=== PATIENT | female | born 1930 | race Caucasian/White ===

== ENCOUNTER 2018-01-22 18:43 | Emergency (ER) | payer MEDICARE, BC ==
[2018-01-22 19:02] VITALS: BP 107/65
--- NOTE | 2018-01-22 19:17 | EDM.PDOC ---
ED HPI GENERAL MEDICAL PROBLEM - General Chief Complaint: General Stated Complaint: [id number] REALLY BAD COLD Time Seen by Provider: 01/22/18 19:07 Source of Information: Reports: Patient, Old Records, RN, RN Notes Reviewed History Limitations: Reports: No Limitations - History of Present Illness INITIAL COMMENTS - FREE TEXT/NARRATIVE: Vanessa is an 87 yo F who presents today due to cough and cold sx. She has been sick for the last 2 weeks. She has had a productive cough and slight shortness of breath. She denies chest pain, fever, chills, or body aches. She was seen per her PCP and given a z-samantha which she has since completed. She reports that she is feeling much better over the last couple days. Has been eating and drinking ok. She relates that her niece would not let her go to the [place] unless she was check out so that is why she is her. She has not taken anything additional for her sx. Duration: Week(s): (Over the last 2 weeks. Sx have been gradually improving. ) Location: Reports: Chest Severity: Mild Improves with: Reports: Rest Worsens with: Reports: Movement Associated Symptoms: Reports: cough w sputum, Shortness of Breath - Related Data Allergies Allergy/AdvReac Type Severity Reaction Status Date / Time acetaminophen Allergy Nausea and Verified 01/22/18 19:05 [From Darvocet-N] Vomiting codeine Allergy Cannot Verified 01/22/18 19:05 Remember propoxyphene Allergy Nausea and Verified 01/22/18 19:05 [From Darvocet-N] Vomiting Home Meds: Home Meds Albuterol [IJD: Ventolin HFA] 1 - 2 puff INH ASDIRECTED PRN 07/02/16 [History] Clopidogrel Bisulfate [Clopidogrel] 75 mg PO DAILY 07/02/16 [History] Digoxin [Digox] 125 mcg PO DAILY 07/02/16 [History] Fluocinonide [Lidex 0.05% Crm] 1 applic TOP ASDIRECTED 07/02/16 [History] Fluticasone/Salmeterol [Advair 250-50 Diskus] 1 puff INH BID 07/02/16 [History] Isosorbide Mononitrate [Imdur] 60 mg PO DAILY 07/02/16 [History] Levothyroxine 112 mcg PO DAILY 07/02/16 [History] Lisinopril [Prinivil] 40 mg PO DAILY 07/02/16 [History] Metoprolol Succinate [Toprol XL] 50 mg PO DAILY 07/02/16 [History] Omeprazole 20 mg PO DAILY 07/02/16 [History] Sertraline HCl 100 mg PO DAILY 07/02/16 [History] Warfarin [Coumadin] 5 mg PO DAILY 07/02/16 [History] amLODIPine Besylate [Amlodipine Besylate] 5 mg PO DAILY 07/02/16 [History] atorvaSTATin Calcium [Atorvastatin Calcium] 80 mg PO DAILY 07/02/16 [History] Aspirin [Ecotrin] 81 mg PO DAILY 07/06/16 [History] Nitroglycerin [Nitrostat] 0.4 mg SL ASDIRECTED 01/22/18 [History] Past Medical History HEENT History: Reports: Impaired Vision Cardiovascular History: Reports: Afib, Blood Clots/VTE/DVT, CAD, High Cholesterol, Hypertension, SOB on Exertion, Other (See Below) Other Cardiovascular History: PAROXYSMAL SUPRAVENTRICULAR TACHYCARDIA Respiratory History: Reports: COPD, SOB, Other (See Below) Other Respiratory History: ANGELINA Gastrointestinal History: Reports: GERD Genitourinary History: Reports: None Musculoskeletal History: Reports: Fracture Neurological History: Reports: None Psychiatric History: Reports: Anxiety, Depression Endocrine/Metabolic History: Reports: Diabetes, Type II, Hypothyroidism, Obesity /BMI 30+ Hematologic History: Reports: Anemia Immunologic History: Reports: None Oncologic (Cancer) History: Reports: Breast Dermatologic History: Reports: None - Infectious Disease History Infectious Disease History: Reports: Chicken Pox, Measles, Mumps - Past Surgical History Cardiovascular Surgical History: Reports: Coronary Artery Stent, Other (See Below) GI Surgical History: Reports: Appendectomy, Colostomy, EGD Female Surgical History: Reports: Hysterectomy, Mastectomy Other Female Surgeries/Procedures: Left mastectomy Social & Family History - Tobacco Use Smoking Status *Q: Never Smoker Second Hand Smoke Exposure: No - Caffeine Use Caffeine Use: Reports: Coffee Other Caffeine Use: drinks decaff. - Recreational Drug Use Recreational Drug Use: No ED ROS GENERAL - Review of Systems Review Of Systems: ROS reveals no pertinent complaints other than HPI. ED EXAM, GENERAL - Physical Exam Exam: See Below Exam Limited By: No Limitations General Appearance: Alert, WD/WN, No Apparent Distress Eye Exam: Bilateral Eye: PERRL Ears: Normal External Exam, Normal Canal, Hearing Grossly Normal, Normal TMs Ear Exam: Bilateral Ear: Auricle Normal, Canal Normal, TM normal Nose: Normal Inspection, Normal Mucosa, No Blood Throat/Mouth: Normal Inspection, Normal Lips, Normal Teeth, Normal Gums, Normal Oropharynx, Normal Voice, No Airway Compromise Head: Atraumatic, Normocephalic Neck: Normal Inspection, Supple, Non-Tender, Full Range of Motion Respiratory/Chest: No Respiratory Distress, Lungs Clear, Normal Breath Sounds, No Accessory Muscle Use, Chest Non-Tender Cardiovascular: Normal Peripheral Pulses, Regular Rate, Rhythm, No Edema, No Gallop, No JVD, No Murmur, No Rub GI/Abdominal: Normal Bowel Sounds, Soft, Non-Tender, No Organomegaly, No Distention, No Abnormal Bruit, No Mass (Female) Exam: Deferred Rectal (Female) Exam: Deferred Back Exam: Normal Inspection, Full Range of Motion, NT Extremities: Normal Inspection, Normal Range of Motion, Non-Tender, Normal Capillary Refill, No Pedal Edema Neurological: Alert, Oriented, CN II-XII Intact, Normal Cognition, Normal Gait, Normal Reflexes, No Motor/Sensory Deficits Psychiatric: Normal Affect, Normal Mood Skin Exam: Warm, Dry, Intact, Normal Color, No Rash Lymphatic: No Adenopathy Course - Vital Signs Last Recorded V/S: Last Vital Signs Temp 98.2 F 01/22/18 18:52 Pulse 79 01/22/18 18:52 Resp 19 01/22/18 18:52 BP 107/65 01/22/18 18:52 Pulse Ox 98 01/22/18 18:52 - Orders/Labs/Meds Labs: Laboratory Tests 01/22/18 01/22/18 Range/Units 19:20 19:20 WBC 9.0 (5.0-10.0) 10^3/uL RBC 4.23 (4.2-5.4) 10^6/uL Hgb 12.0 (12.0-16.0) g/dL Hct 36.9 L (37.0-47.0) % MCV 87.2 D (80-100) fL MCH 28.4 (27.0-34.0) pg MCHC 32.5 L (33.0-35.0) g/dL Plt Count 266 D (150-450) 10^3/uL Neut % (Auto) 69.4 (42.2-75.2) % Lymph % (Auto) 22.6 (20.5-50.1) % [place] % (Auto) 6.6 (2-8) % Eos % (Auto) 1.0 (1.0-3.0) % Baso % (Auto) 0.4 (0.0-1.0) % Sodium 137 (135-145) mmol/L Potassium 4.1 (3.6-5.0) mmol/L Chloride 108 (101-111) mmol/L Carbon Dioxide 19.0 L (21.0-31.0) mmol/L Anion Gap 14.1 BUN 27 H (7-18) mg/dL Creatinine 1.5 H (0.6-1.3) mg/dL Est Cr Clr Drug Dosing 20.42 mL/min Estimated GFR (MDRD) 33 BUN/Creatinine Ratio 18.00 Glucose 121 H (74-105) mg/dL Calcium 8.6 (8.4-10.2) mg/dl Total Bilirubin 0.8 (0.2-1.0) mg/dL AST 19 (10-42) IU/L ALT 15 (10-60) IU/L Alkaline Phosphatase 76 (42-121) IU/L Total Protein 7.2 (6.7-8.2) g/dl Albumin 3.4 (3.2-5.5) g/dl Globulin 3.8 Albumin/Globulin Ratio 0.89 Departure - Departure Time of Disposition: 19:57 Disposition: Home, Self-Care 01 Condition: Good Clinical Impression: Upper respiratory infection Qualifiers: URI type: unspecified URI Qualified Code(s): J06.9 - Acute upper respiratory infection, unspecified - Discharge Information Instructions: Upper Respiratory Infection, Adult, [id number] Forms: ED Department Discharge Care Plan Goals: Push fluids Your cough may last a couple weeks. Over the counter cough drops as needed. Monitor for fever, increased shortness of breath, or other concerns.
[2018-01-22 19:47] LABS: ANION GAP 14.1
== END 2018-01-22 20:02 | disposition home or self-care (01) ==
LOC: DL.ED 18:43
DX: J06.9 Acute upper respiratory infection, unspecified (principal); I10 Essential (primary) hypertension; E78.00 Pure hypercholesterolemia, unspecified; I48.91 Unspecified atrial fibrillation; K21.9 Gastro-esophageal reflux disease without esophagitis; F41.9 Anxiety disorder, unspecified; F32.9 Major depressive disorder, single episode, unspecified; E11.9 Type 2 diabetes mellitus without complications; E03.9 Hypothyroidism, unspecified; E66.9 Obesity, unspecified; Z88.8 Allergy status to other drugs, medicaments and biological substances; Z88.5 Allergy status to narcotic agent; Z79.899 Other long term (current) drug therapy; Z79.82 Long term (current) use of aspirin; Z79.01 Long term (current) use of anticoagulants
CPT/HCPCS: 36415; 71046; 80053; 85025; 99283

== ENCOUNTER 2019-09-27 18:25 | Observation (INO) | payer MEDICARE, BC ==
[2019-09-27] MEDS ORDERED: Sodium Chloride 0.9% 10 ML Syringe FLUSH PRN (18:41)
[2019-09-27] MEDS ORDERED: Ondansetron 4 MG/2 ML SDV IV ONE (18:43)
--- NOTE | 2019-09-27 18:46 | EDM.PDOC ---
Scribed by Albina Macdonald 09/27/19 1846 for Vijay Tom MD <Vijay Tom - Last Filed: 09/27/19 18:44> ED HPI GENERAL MEDICAL PROBLEM - General Chief Complaint: Gastrointestinal Problem Stated Complaint: AMBULANCE LRA Time Seen by Provider: 09/27/19 18:27 Source of Information: Reports: Patient, EMS, EMS Notes Reviewed, RN, RN Notes Reviewed History Limitations: Reports: No Limitations - History of Present Illness INITIAL COMMENTS - FREE TEXT/NARRATIVE: Patient presents to ER by [facility]. Patient was fine during the day but this evening she developed nausea, vomiting and diarrhea. Denies abdominal pain, chest pain, fever or chills. Onset: Today Duration: Getting Worse Location: Reports: Abdomen Quality: Reports: Ache Severity: Moderate Improves with: Reports: None Worsens with: Reports: None Associated Symptoms: Reports: No Other Symptoms - Related Data Allergies Allergy/AdvReac Type Severity Reaction Status Date / Time acetaminophen Allergy Nausea and Verified 09/27/19 18:48 [From Darvocet-N] Vomiting codeine Allergy Cannot Verified 09/27/19 18:48 Remember propoxyphene Allergy Nausea and Verified 09/27/19 18:48 [From Darvocet-N] Vomiting Home Meds: Home Meds Albuterol [IJD: Ventolin HFA] 1 - 2 puff INH ASDIRECTED PRN 07/02/16 [History] Clopidogrel Bisulfate [Clopidogrel] 75 mg PO DAILY 07/02/16 [History] Digoxin [Digox] 125 mcg PO DAILY 07/02/16 [History] Fluticasone/Salmeterol [Advair 250-50 Diskus] 1 puff INH BID 07/02/16 [History] Isosorbide Mononitrate [Imdur] 60 mg PO DAILY 07/02/16 [History] Levothyroxine 112 mcg PO DAILY 07/02/16 [History] Lisinopril [Prinivil] 20 mg PO DAILY 07/02/16 [History] Metoprolol Succinate [Toprol XL] 50 mg PO DAILY 07/02/16 [History] Omeprazole 20 mg PO BID 07/02/16 [History] Sertraline HCl 100 mg PO DAILY 07/02/16 [History] Warfarin [Coumadin] 5 mg PO ASDIRECTED 07/02/16 [History] atorvaSTATin Calcium [Atorvastatin Calcium] 80 mg PO DAILY 07/02/16 [History] Nitroglycerin [Nitrostat] 0.4 mg SL ASDIRECTED PRN 01/22/18 [History] Folic Acid 1 mg PO DAILY 08/18/18 [History] Furosemide 20 mg PO DAILY PRN 05/04/19 [History] LORazepam 0.5 - 1 mg PO BEDTIME PRN 05/04/19 [History] Methylcellulose [Citrucel] 500 mg PO DAILY PRN 05/04/19 [History] Past Medical History HEENT History: Reports: Impaired Vision Cardiovascular History: Reports: Afib, Blood Clots/VTE/DVT, CAD, High Cholesterol, Hypertension, SOB on Exertion, Other (See Below) Other Cardiovascular History: PAROXYSMAL SUPRAVENTRICULAR TACHYCARDIA Respiratory History: Reports: COPD, SOB, Other (See Below) Other Respiratory History: ANGELINA Gastrointestinal History: Reports: GERD Genitourinary History: Reports: None Musculoskeletal History: Reports: Fracture Neurological History: Reports: None Psychiatric History: Reports: Anxiety, Depression Endocrine/Metabolic History: Reports: Diabetes, Type II, Hypothyroidism, Obesity /BMI 30+ Hematologic History: Reports: Anemia Immunologic History: Reports: None Oncologic (Cancer) History: Reports: Breast Dermatologic History: Reports: None - Infectious Disease History Infectious Disease History: Reports: Chicken Pox, Measles, Mumps - Past Surgical History Cardiovascular Surgical History: Reports: Coronary Artery Stent, Other (See Below) GI Surgical History: Reports: Appendectomy, Colostomy, EGD Female Surgical History: Reports: Hysterectomy, Mastectomy Other Female Surgeries/Procedures: Left mastectomy Social & Family History - Caffeine Use Caffeine Use: Reports: Coffee Other Caffeine Use: drinks decaff. ED ROS GENERAL - Review of Systems Review Of Systems: Comprehensive ROS is negative, except as noted in HPI. Course - Vital Signs Last Recorded V/S: Last Vital Signs Temp 98 F 09/27/19 23:40 Pulse 60 09/27/19 23:40 Resp 20 09/27/19 23:40 BP 124/55 L 09/27/19 23:40 Pulse Ox 98 09/27/19 23:40 - Orders/Labs/Meds Orders: Active Orders 24 hr Category Date Time Status Peripheral IV Care [RC] . DIRECTED Care 09/27/19 18:42 Active C DIFFICILE TOXIN IMMUNOASSAY [MREF] Routine Lab 09/27/19 18:44 Received CULTURE STOOL [RM] Stat Lab 09/27/19 18:44 Received UA RFX ESTELA AND CULT IF INDIC [URIN] Stat Lab 09/27/19 18:41 Ordered Sodium Chloride 0.9% [Saline Flush] Med 09/27/19 18:41 Active 10 ml FLUSH ASDIRECTED PRN Peripheral IV Insertion Adult [OM.PC] Stat Oth 09/27/19 18:40 Ordered Medication Orders Acetaminophen (Tylenol) 650 mg PO Q4H PRN PRN Reason: Pain (Mild 1-3)/fever Albuterol/Ipratropium (Duoneb 3.0-0.5 Mg/3 Ml) 3 ml NEB Q2H PRN PRN Reason: sob Clopidogrel Bisulfate (Plavix) 75 mg PO DAILY [facility] Dextrose/Water (Dextrose 50% In Water) 25 ml IVPUSH Q1H PRN PRN Reason: blood sugar <70 Digoxin (Lanoxin) 125 mcg PO DAILY [facility] Folic Acid (Folic Acid) 1 mg PO DAILY [facility] Lactated Ringer's (Ringers, Lactated) 1,000 mls @ 75 mls/hr IV ASDIRECTED [facility] Last Admin: 09/27/19 22:32 Dose: 75 mls/hr Insulin Human Lispro (Humalog) 0 unit SUBCUT ACBED [facility]; Protocol Isosorbide Mononitrate (Imdur) 60 mg PO DAILY [facility] Levothyroxine Sodium (Levothyroxine) 112 mcg PO DAILY [facility] Lorazepam (Ativan) 0.5 mg PO BEDTIME PRN PRN Reason: Sleep Metoprolol Succinate (Toprol Xl) 50 mg PO DAILY [facility] Non-Formulary Medication (Atorvastatin Calcium [Atorvastatin Calcium]) 80 mg PO DAILY [facility] Non-Formulary Medication (Lisinopril [Prinivil]) 20 mg PO DAILY [facility] Non-Formulary Medication (Sertraline Hcl [Sertraline Hcl]) 100 mg PO DAILY [facility] Non-Formulary Medication (Fluticasone/Salmeterol [Advair 250-50 Diskus]) 1 puff INH BID [facility] Omeprazole (Omeprazole) 20 mg PO BID [facility] Ondansetron HCl (Zofran Odt) 4 mg PO Q6H PRN PRN Reason: nausea, able to take PO Ondansetron HCl (Zofran) 4 mg IVPUSH Q4H PRN PRN Reason: Nausea/Vomiting Sodium Chloride (Saline Flush) 10 ml FLUSH ASDIRECTED PRN PRN Reason: Keep Vein Open Last Admin: 09/27/19 19:26 Dose: 10 ml Warfarin Sodium (Pharmacy To Dose - Warfarin) 1 dose .XX ASDIRECTED [facility] Labs: Laboratory Tests 09/27/19 09/27/19 09/27/19 Range/Units 18:55 18:55 18:55 WBC 11.2 H (5.0-10.0) 10^3/uL RBC 3.50 L (4.2-5.4) 10^6/uL Hgb 10.2 L D (12.0-16.0) g/dL Hct 32.0 L (37.0-47.0) % MCV 91.4 D (80-100) fL MCH 29.1 (27.0-34.0) pg MCHC 31.9 L (33.0-35.0) g/dL Plt Count 157 D (150-450) 10^3/uL Neut % (Auto) 78.7 H (42.2-75.2) % Lymph % (Auto) 15.2 L (20.5-50.1) % [place] % (Auto) 5.2 (2-8) % Eos % (Auto) 0.8 L (1.0-3.0) % Baso % (Auto) 0.1 (0.0-1.0) % PT 35.1 H (9.0-12.0) SEC INR 3.7 H (0.9-1.2) Sodium 142 (135-145) mmol/L Potassium 2.9 L (3.6-5.0) mmol/L Chloride 122 H D (101-111) mmol/L Carbon Dioxide 15.0 L (21.0-31.0) mmol/L Anion Gap 7.9 BUN 30 H (7-18) mg/dL Creatinine 0.9 (0.6-1.3) mg/dL Est Cr Clr Drug Dosing 33.52 mL/min Estimated GFR (MDRD) 59 BUN/Creatinine Ratio 33.33 Glucose 109 H (74-105) mg/dL Lactic Acid (0.5-2.2) mmol/L Calcium 5.9 L D (8.4-10.2) mg/dl Total Bilirubin 0.5 (0.2-1.0) mg/dL AST 13 (10-42) IU/L ALT 13 (10-60) IU/L Alkaline Phosphatase 58 (42-121) IU/L Troponin I (0.00-0.02) ng/ml B-Natriuretic Peptide 39 (0-100) pg/ml Total Protein 5.4 L (6.7-8.2) g/dl Albumin 2.7 L (3.2-5.5) g/dl Globulin 2.7 Albumin/Globulin Ratio 1.00 Amylase 44 (28-100) U/L Lipase 46 (22-51) U/L Digoxin (0-2.5) ng/ml 09/27/19 09/27/19 09/27/19 Range/Units 18:55 18:55 18:55 WBC (5.0-10.0) 10^3/uL RBC (4.2-5.4) 10^6/uL Hgb (12.0-16.0) g/dL Hct (37.0-47.0) % MCV (80-100) fL MCH (27.0-34.0) pg MCHC (33.0-35.0) g/dL Plt Count (150-450) 10^3/uL Neut % (Auto) (42.2-75.2) % Lymph % (Auto) (20.5-50.1) % [place] % (Auto) (2-8) % Eos % (Auto) (1.0-3.0) % Baso % (Auto) (0.0-1.0) % PT (9.0-12.0) SEC INR (0.9-1.2) Sodium (135-145) mmol/L Potassium (3.6-5.0) mmol/L Chloride (101-111) mmol/L Carbon Dioxide (21.0-31.0) mmol/L Anion Gap BUN (7-18) mg/dL Creatinine (0.6-1.3) mg/dL Est Cr Clr Drug Dosing mL/min Estimated GFR (MDRD) BUN/Creatinine Ratio Glucose (74-105) mg/dL Lactic Acid 0.7 (0.5-2.2) mmol/L Calcium (8.4-10.2) mg/dl Total Bilirubin (0.2-1.0) mg/dL AST (10-42) IU/L ALT (10-60) IU/L Alkaline Phosphatase (42-121) IU/L Troponin I < 0.02 (0.00-0.02) ng/ml B-Natriuretic Peptide (0-100) pg/ml Total Protein (6.7-8.2) g/dl Albumin (3.2-5.5) g/dl Globulin Albumin/Globulin Ratio Amylase (28-100) U/L Lipase (22-51) U/L Digoxin 0.5 (0-2.5) ng/ml Meds: Medications Generic Name Dose Route Start Last Admin Trade Name Freq PRN Reason Stop Dose Admin Acetaminophen 650 mg 09/27/19 21:08 Tylenol PO Q4H PRN Pain (Mild 1-3)/fever Albuterol/Ipratropium 3 ml 09/27/19 21:15 Duoneb 3.0-0.5 Mg/3 Ml NEB Q2H PRN sob Clopidogrel Bisulfate 75 mg 09/28/19 09:00 Plavix PO DAILY [facility] Dextrose/Water 25 ml 09/27/19 21:11 Dextrose 50% In Water IVPUSH Q1H PRN blood sugar <70 Digoxin 125 mcg 09/28/19 09:00 Lanoxin PO DAILY [facility] Folic Acid 1 mg 09/28/19 09:00 Folic Acid PO DAILY [facility] Lactated Ringer's 1,000 mls @ 75 mls/hr 09/27/19 21:15 09/27/19 22:32 Ringers, Lactated IV 75 mls/hr ASDIRECTED [facility] Administration Insulin Human Lispro 0 unit 09/28/19 07:00 Humalog SUBCUT ACBED [facility] Protocol Isosorbide Mononitrate 60 mg 09/28/19 09:00 Imdur PO DAILY [facility] Levothyroxine Sodium 112 mcg 09/28/19 09:00 Levothyroxine PO DAILY [facility] Lorazepam 0.5 mg 09/27/19 21:11 Ativan PO BEDTIME PRN Sleep Metoprolol Succinate 50 mg 09/28/19 09:00 Toprol Xl PO DAILY [facility] Non-Formulary Medication 80 mg 09/28/19 09:00 Atorvastatin Calcium [Atorvastatin Calcium] PO DAILY [facility] Non-Formulary Medication 20 mg 09/28/19 09:00 Lisinopril [Prinivil] PO DAILY [facility] Non-Formulary Medication 100 mg 09/28/19 09:00 Sertraline Hcl [Sertraline Hcl] PO DAILY [facility] Non-Formulary Medication 1 puff 09/28/19 09:00 Fluticasone/Salmeterol [Advair 250-50 Diskus] INH BID [facility] Omeprazole 20 mg 09/28/19 09:00 Omeprazole PO BID [facility] Ondansetron HCl 4 mg 09/27/19 21:08 Zofran Odt PO Q6H PRN nausea, able to take PO Ondansetron HCl 4 mg 09/27/19 21:08 Zofran IVPUSH Q4H PRN Nausea/Vomiting Sodium Chloride 10 ml 09/27/19 18:41 09/27/19 19:26 Saline Flush FLUSH 10 ml ASDIRECTED PRN Administration Keep Vein Open Warfarin Sodium 1 dose 09/27/19 21:15 Pharmacy To Dose - Warfarin .XX ASDIRECTED [facility] Discontinued Medications Generic Name Dose Route Start Last Admin Trade Name Freq PRN Reason Stop Dose Admin Potassium Chloride 10 meq/ 100 mls @ 100 mls/hr 09/27/19 19:25 09/27/19 19:35 Premix IV 09/27/19 20:24 50 mls/hr ONETIME ONE Administration Ondansetron HCl 4 mg 09/27/19 18:43 09/27/19 18:57 Zofran IV 09/27/19 18:44 4 mg ONETIME ONE Administration Temazepam 15 mg 09/27/19 21:08 Restoril PO BEDTIME PRN Sleep - Re-Assessments/Exams Free Text/Narrative Re-Assessment/Exam: 09/27/19 19:00 Care transferred to Yesica MOULTON at shift change. Departure - Departure Disposition: Refer to Observation Clinical Impression: Diarrhea, Vomiting, Hypokalemia, Metabolic acidosis, History of atrial fibrillation, Chronic anticoagulation, History of diverticulosis - Discharge Information <Yesica Santiago - Last Filed: 09/28/19 01:16> ED ROS GENERAL - Review of Systems Constitutional: Reports: Fever, Chills, Diaphoresis (Sudden onset this evening) HEENT: Reports: No Symptoms Respiratory: Reports: Shortness of Breath (chronic no change) Cardiovascular: Reports: No Symptoms Endocrine: Reports: No Symptoms GI/Abdominal: Reports: Diarrhea, Stool Incontinence, Vomiting : Reports: No Symptoms Musculoskeletal: Reports: No Symptoms Skin: Reports: Other (skin tear left uper arm) Neurological: Reports: No Symptoms ED EXAM, GI/ABD - Physical Exam Exam: See Below Exam Limited By: No Limitations General Appearance: Alert, No Apparent Distress, Obese Eyes: Bilateral: EOMI Ears: Normal External Exam, Hearing Grossly Normal Nose: Normal Inspection Throat/Mouth: Normal Inspection Head: Atraumatic, Normocephalic Neck: Normal Inspection Respiratory/Chest: No Respiratory Distress, Lungs Clear, Decreased Breath Sounds (bilateral bases) Cardiovascular: Normal Peripheral Pulses, Irregularly Irregular GI/Abdominal Exam: Normal Bowel Sounds, Soft, Non-Tender Back Exam: Normal Inspection Neurological: Alert, Oriented, Normal Cognition Psychiatric: Normal Affect, Normal Mood Skin Exam: Warm, Dry, Wound/Incision (left upper outer arm) Course - Re-Assessments/Exams Free Text/Narrative Re-Assessment/Exam: Dr Garduno accepting patient for observation admission, metabolic acidosis, diarrhea. Departure - Departure Time of Disposition: 19:46 Condition: Fair - Discharge Information *PRESCRIPTION DRUG MONITORING PROGRAM REVIEWED*: No *COPY OF PRESCRIPTION DRUG MONITORING REPORT IN PATIENT AMNA: No I have read and agree with the documentation that has been completed regarding this visit. By signing this record, I attest that the documentation was completed in my physical presence and is an accurate record of the encounter.
[2019-09-27 19:23] LABS: ANION GAP 7.9
[2019-09-27] MEDS ORDERED: Potassium Chloride 10 MEQ in Premix Bag 1 BAG IV ONE (19:25)
[2019-09-27] MEDS ORDERED: Ondansetron 4 MG/2 ML SDV IVPUSH PRN (21:08)
[2019-09-27] MEDS ORDERED: Acetaminophen 325 MG Tab PO PRN (21:08)
[2019-09-27] MEDS ORDERED: Ondansetron 4 MG Tab.DIS PO PRN (21:08)
[2019-09-27] MEDS ORDERED: Temazepam 15 MG Cap PO PRN (21:08)
[2019-09-27] MEDS ORDERED: LORAZEPAM 0.5 MG PO PRN (21:11)
[2019-09-27] MEDS ORDERED: 50% Dextrose in Water 50 ML Syringe IVPUSH PRN (21:11)
[2019-09-27] MEDS ORDERED: Albuterol/Ipratropium 3.0-0.5 MG/3 ML Neb Soln NEB PRN (21:15)
[2019-09-27] MEDS ORDERED: Lactated Ringers 1,000 ML IV SCH (21:15)
--- NOTE | 2019-09-27 21:25 | PCM.HP ---
H&P History of Present Illness - General Date of Service: 09/27/19 Admit Problem/Dx: Admission Diagnosis/Problem Admission Diagnosis/Problem Metabolic acidosis Source of Information: Patient, Family, Provider (ER) - History of Present Illness Initial Comments - Free Text/Narative: 89-year-old who has been living independently. Has a history of atrial fibrillation, diet-controlled diabetes, COPD. She has chronic diarrhea with 2-5 bowel movement every day. The bowel movements are relatively large she says. She somewhat poor historian. It appears that she has had no recent problems in the past few days. She developed hot flush, nausea, an episode of vomiting and sudden diarrhea while playing card game. She felt to be but had no syncopal episode. She was brought into the emergency room. She denies chest pain, no abdominal pain, no fever or chills. No cough. She is actually feeling better now. Laboratory studies were abnormal in the emergency room and was referred for hospital admission. - Related Data Allergies/Adverse Reactions: Allergies Allergy/AdvReac Type Severity Reaction Status Date / Time acetaminophen Allergy Nausea and Verified 09/27/19 18:48 [From Darvocet-N] Vomiting codeine Allergy Cannot Verified 09/27/19 18:48 Remember propoxyphene Allergy Nausea and Verified 09/27/19 18:48 [From Darvocet-N] Vomiting Home Medications: Home Meds Albuterol [IJD: Ventolin HFA] 1 - 2 puff INH ASDIRECTED PRN 07/02/16 [History] Clopidogrel Bisulfate [Clopidogrel] 75 mg PO DAILY 07/02/16 [History] Digoxin [Digox] 125 mcg PO DAILY 07/02/16 [History] Fluticasone/Salmeterol [Advair 250-50 Diskus] 1 puff INH BID 07/02/16 [History] Isosorbide Mononitrate [Imdur] 60 mg PO DAILY 07/02/16 [History] Levothyroxine 112 mcg PO DAILY 07/02/16 [History] Lisinopril [Prinivil] 20 mg PO DAILY 07/02/16 [History] Metoprolol Succinate [Toprol XL] 50 mg PO DAILY 07/02/16 [History] Omeprazole 20 mg PO BID 07/02/16 [History] Sertraline HCl 100 mg PO DAILY 07/02/16 [History] Warfarin [Coumadin] 5 mg PO ASDIRECTED 07/02/16 [History] atorvaSTATin Calcium [Atorvastatin Calcium] 80 mg PO DAILY 07/02/16 [History] Nitroglycerin [Nitrostat] 0.4 mg SL ASDIRECTED PRN 01/22/18 [History] Folic Acid 1 mg PO DAILY 08/18/18 [History] Furosemide 20 mg PO DAILY PRN 05/04/19 [History] LORazepam 0.5 - 1 mg PO BEDTIME PRN 05/04/19 [History] Methylcellulose [Citrucel] 500 mg PO DAILY PRN 05/04/19 [History] Past Medical History HEENT History: Reports: Impaired Vision Cardiovascular History: Reports: Afib, Blood Clots/VTE/DVT, CAD, High Cholesterol, Hypertension, SOB on Exertion, Other (See Below) Other Cardiovascular History: PAROXYSMAL SUPRAVENTRICULAR TACHYCARDIA Respiratory History: Reports: COPD, SOB, Other (See Below) Other Respiratory History: ANGELINA Gastrointestinal History: Reports: GERD Genitourinary History: Reports: None Musculoskeletal History: Reports: Fracture Neurological History: Reports: None Psychiatric History: Reports: Anxiety, Depression Endocrine/Metabolic History: Reports: Diabetes, Type II, Hypothyroidism, Obesity /BMI 30+ Hematologic History: Reports: Anemia Immunologic History: Reports: None Oncologic (Cancer) History: Reports: Breast Dermatologic History: Reports: None - Infectious Disease History Infectious Disease History: Reports: Chicken Pox, Measles, Mumps - Past Surgical History Cardiovascular Surgical History: Reports: Coronary Artery Stent, Other (See Below) GI Surgical History: Reports: Appendectomy, Colostomy, EGD Female Surgical History: Reports: Hysterectomy, Mastectomy Other Female Surgeries/Procedures: Left mastectomy Social & Family History - Tobacco Use Smoking Status *Q: Never Smoker - Caffeine Use Caffeine Use: Reports: Coffee Other Caffeine Use: drinks decaff. - Recreational Drug Use Recreational Drug Use: No H&P Review of Systems - Review of Systems: Review Of Systems: See Below General: Reports: Malaise, Weakness. Denies: Fever, Chills Pulmonary: Denies: Shortness of Breath, Wheezing Cardiovascular: Denies: Chest Pain (Sudden onset), Palpitations, Edema Gastrointestinal: Reports: Diarrhea, Nausea, Vomiting (No black or bloody material). Denies: Abdominal Pain Genitourinary: Denies: Dysuria Musculoskeletal: Denies: Neck Pain Neurological: Reports: Dizziness. Denies: Confusion, Headache, Seizure, Syncope Exam - Exam Exam: See Below - Vital Signs Vital Signs: Last Vital Signs Temp 35.8 C 09/27/19 18:43 Pulse 84 09/27/19 18:43 Resp 14 09/27/19 18:43 BP 133/58 L 09/27/19 18:43 Pulse Ox 94 L 09/27/19 18:43 Weight: 67.585 kg - Exam Quality Assessment: No: Supplemental Oxygen General: Alert, Oriented Neck: Supple Lungs: Clear to Auscultation, Normal Respiratory Effort Cardiovascular: Irregular Rhythm GI/Abdominal Exam: Normal Bowel Sounds, Soft, Non-Tender Extremities: No Pedal Edema - Patient Data Lab Results Last 24 hrs: Laboratory Results - last 24 hr 09/27/19 09/27/19 09/27/19 Range/Units 18:55 18:55 18:55 WBC 11.2 H (5.0-10.0) 10^3/uL RBC 3.50 L (4.2-5.4) 10^6/uL Hgb 10.2 L D (12.0-16.0) g/dL Hct 32.0 L (37.0-47.0) % MCV 91.4 D (80-100) fL MCH 29.1 (27.0-34.0) pg MCHC 31.9 L (33.0-35.0) g/dL Plt Count 157 D (150-450) 10^3/uL Neut % (Auto) 78.7 H (42.2-75.2) % Lymph % (Auto) 15.2 L (20.5-50.1) % Republic % (Auto) 5.2 (2-8) % Eos % (Auto) 0.8 L (1.0-3.0) % Baso % (Auto) 0.1 (0.0-1.0) % PT 35.1 H (9.0-12.0) SEC INR 3.7 H (0.9-1.2) Sodium 142 (135-145) mmol/L Potassium 2.9 L (3.6-5.0) mmol/L Chloride 122 H D (101-111) mmol/L Carbon Dioxide 15.0 L (21.0-31.0) mmol/L Anion Gap 7.9 BUN 30 H (7-18) mg/dL Creatinine 0.9 (0.6-1.3) mg/dL Est Cr Clr Drug Dosing 33.52 mL/min Estimated GFR (MDRD) 59 BUN/Creatinine Ratio 33.33 Glucose 109 H (74-105) mg/dL Lactic Acid (0.5-2.2) mmol/L Calcium 5.9 L D (8.4-10.2) mg/dl Total Bilirubin 0.5 (0.2-1.0) mg/dL AST 13 (10-42) IU/L ALT 13 (10-60) IU/L Alkaline Phosphatase 58 (42-121) IU/L Troponin I (0.00-0.02) ng/ml B-Natriuretic Peptide 39 (0-100) pg/ml Total Protein 5.4 L (6.7-8.2) g/dl Albumin 2.7 L (3.2-5.5) g/dl Globulin 2.7 Albumin/Globulin Ratio 1.00 Amylase 44 (28-100) U/L Lipase 46 (22-51) U/L Digoxin (0-2.5) ng/ml 09/27/19 09/27/19 09/27/19 Range/Units 18:55 18:55 18:55 WBC (5.0-10.0) 10^3/uL RBC (4.2-5.4) 10^6/uL Hgb (12.0-16.0) g/dL Hct (37.0-47.0) % MCV (80-100) fL MCH (27.0-34.0) pg MCHC (33.0-35.0) g/dL Plt Count (150-450) 10^3/uL Neut % (Auto) (42.2-75.2) % Lymph % (Auto) (20.5-50.1) % Republic % (Auto) (2-8) % Eos % (Auto) (1.0-3.0) % Baso % (Auto) (0.0-1.0) % PT (9.0-12.0) SEC INR (0.9-1.2) Sodium (135-145) mmol/L Potassium (3.6-5.0) mmol/L Chloride (101-111) mmol/L Carbon Dioxide (21.0-31.0) mmol/L Anion Gap BUN (7-18) mg/dL Creatinine (0.6-1.3) mg/dL Est Cr Clr Drug Dosing mL/min Estimated GFR (MDRD) BUN/Creatinine Ratio Glucose (74-105) mg/dL Lactic Acid 0.7 (0.5-2.2) mmol/L Calcium (8.4-10.2) mg/dl Total Bilirubin (0.2-1.0) mg/dL AST (10-42) IU/L ALT (10-60) IU/L Alkaline Phosphatase (42-121) IU/L Troponin I < 0.02 (0.00-0.02) ng/ml B-Natriuretic Peptide (0-100) pg/ml Total Protein (6.7-8.2) g/dl Albumin (3.2-5.5) g/dl Globulin Albumin/Globulin Ratio Amylase (28-100) U/L Lipase (22-51) U/L Digoxin 0.5 (0-2.5) ng/ml Result Diagrams: 09/27/19 18:55 09/27/19 18:55 Yifan Results Last 24 hrs: Microbiology 09/27/19 18:44 Stool Occult Blood (YIFAN) - Final Stool / Feces - Stool, Liquid NEGATIVE OCCULT BLOOD REFERENCE RANGE: NEGATIVE - Problem List (1) Near syncope SNOMED Code(s): 264628129 ICD Code: R55 - SYNCOPE AND COLLAPSE Status: Acute Current Visit: Yes (2) Diarrhea SNOMED Code(s): 80401701 ICD Code: R19.7 - DIARRHEA, UNSPECIFIED Status: Acute Current Visit: No (3) Vomiting SNOMED Code(s): 416616452 ICD Code: R11.10 - VOMITING, UNSPECIFIED Status: Acute Current Visit: No Problem List Initiated/Reviewed/Updated: Yes Orders Last 24hrs: Active Orders 24 hr Category Date Time Status Admission Diagnosis [ADT] Routine ADT 09/27/19 19:43 Ordered Admission Status [Patient Status] [ADT] Routine ADT 09/27/19 19:43 Active Antiembolic Devices [RC] PER UNIT ROUTINE Care 09/27/19 21:09 Ordered Blood Glucose Check, Bedside [RC] WITHMEALSANDBED Care 09/27/19 21:08 Ordered EKG 12 Lead [EKG Documentation Completion] [RC] URGENT Care 09/27/19 18:54 Active Oxygen Therapy [RC] PRN Care 09/27/19 21:08 Ordered Peripheral IV Care [RC] . DIRECTED Care 09/27/19 18:42 Active RT Aerosol Therapy [RC] ASDIRECTED Care 09/27/19 21:15 Ordered Up With Assistance [RC] ASDIRECTED Care 09/27/19 21:08 Ordered VTE/DVT Education [RC] PER UNIT ROUTINE Care 09/27/19 21:08 Ordered Vital Signs [RC] Q4H Care 09/27/19 21:08 Ordered Regular Diet [DIET] Diet 09/27/19 Breakfast Ordered BASIC METABOLIC PANEL,BMP [CHEM] AM Lab 09/28/19 05:15 Ordered BASIC METABOLIC PANEL,BMP [CHEM] Urgent Lab 09/27/19 20:51 Ordered C DIFFICILE TOXIN IMMUNOASSAY [MREF] Routine Lab 09/27/19 18:44 Received CBC WITH AUTO DIFF [HEME] AM Lab 09/28/19 05:15 Ordered CULTURE STOOL [RM] Stat Lab 09/27/19 18:44 Received INR,PT,PROTHROMBIN TIME [COAG] DAILY Lab 09/28/19 05:15 Ordered INR,PT,PROTHROMBIN TIME [COAG] DAILY Lab 09/29/19 05:15 Ordered INR,PT,PROTHROMBIN TIME [COAG] DAILY Lab 09/30/19 05:15 Ordered INR,PT,PROTHROMBIN TIME [COAG] DAILY Lab 10/01/19 05:15 Ordered INR,PT,PROTHROMBIN TIME [COAG] DAILY Lab 10/02/19 05:15 Ordered MAGNESIUM [CHEM] AM Lab 09/28/19 05:11 Ordered PHOSPHORUS [CHEM] AM Lab 09/28/19 05:11 Ordered UA RFX YIFAN AND CULT IF INDIC [URIN] Stat Lab 09/27/19 18:41 Ordered Acetaminophen [Tylenol] Med 09/27/19 21:08 Ordered 650 mg PO Q4H PRN Albuterol/Ipratropium [DuoNeb 3.0-0.5 MG/3 ML] Med 09/27/19 21:15 Ordered 3 ml NEB Q2H PRN Clopidogrel [Plavix] Med 09/28/19 09:00 Ordered 75 mg PO DAILY Dextrose 50% in Water Med 09/27/19 21:11 Ordered 25 ml IVPUSH Q1H PRN Digoxin [Lanoxin] Med 09/28/19 09:00 Ordered 125 mcg PO DAILY Fluticasone/Salmeterol [Advair 250-50 Diskus] Med 09/28/19 09:00 Ordered 1 puff INH BID Folic Acid Med 09/28/19 09:00 Ordered 1 mg PO DAILY Insulin Lispro [HumaLOG] Med 09/28/19 07:00 Ordered See Protocol SUBCUT ACBED Isosorbide Mononitrate [Imdur] Med 09/28/19 09:00 Ordered 60 mg PO DAILY LORazepam [Ativan] Med 09/27/19 21:11 Ordered 0.5 mg PO BEDTIME PRN Lactated Ringers @ 75 MLS/HR(1000ml) Med 09/27/19 21:15 Ordered Lactated Ringers [Ringers, Lactated] 1,000 ml IV ASDIRECTED Levothyroxine Med 09/28/19 09:00 Ordered 112 mcg PO DAILY Lisinopril [Prinivil] Med 09/28/19 09:00 Ordered 20 mg PO DAILY Metoprolol Succinate [Toprol XL] Med 09/28/19 09:00 Ordered 50 mg PO DAILY Omeprazole Med 09/28/19 09:00 Ordered 20 mg PO BID Ondansetron [Zofran ODT] Med 09/27/19 21:08 Ordered 4 mg PO Q6H PRN Ondansetron [Zofran] Med 09/27/19 21:08 Ordered 4 mg IVPUSH Q4H PRN Pharmacy to Dose - Warfarin Med 09/27/19 21:15 Ordered 1 dose .XX ASDIRECTED Sertraline HCl [Sertraline HCl] Med 09/28/19 09:00 Ordered 100 mg PO DAILY Sodium Chloride 0.9% [Saline Flush] Med 09/27/19 18:41 Active 10 ml FLUSH ASDIRECTED PRN atorvaSTATin Calcium [Atorvastatin Calcium] Med 09/28/19 09:00 Ordered 80 mg PO DAILY Antiembolic Hose [OM.PC] Per Unit Routine Oth 09/27/19 21:09 Ordered Peripheral IV Insertion Adult [OM.PC] Stat Oth 09/27/19 18:40 Ordered Resuscitation Status Routine Resus Stat 09/27/19 21:08 Ordered Medication Orders Acetaminophen (Tylenol) 650 mg PO Q4H PRN PRN Reason: Pain (Mild 1-3)/fever Albuterol/Ipratropium (Duoneb 3.0-0.5 Mg/3 Ml) 3 ml NEB Q2H PRN PRN Reason: sob Clopidogrel Bisulfate (Plavix) 75 mg PO DAILY [facility] Dextrose/Water (Dextrose 50% In Water) 25 ml IVPUSH Q1H PRN PRN Reason: blood sugar <70 Digoxin (Lanoxin) 125 mcg PO DAILY [facility] Folic Acid (Folic Acid) 1 mg PO DAILY [facility] Lactated Ringer's (Ringers, Lactated) 1,000 mls @ 75 mls/hr IV ASDIRECTED [facility] Insulin Human Lispro (Humalog) 0 unit SUBCUT ACBED DEBI; Protocol Isosorbide Mononitrate (Imdur) 60 mg PO DAILY [facility] Levothyroxine Sodium (Levothyroxine) 112 mcg PO DAILY [facility] Lorazepam (Ativan) 0.5 mg PO BEDTIME PRN PRN Reason: Sleep Metoprolol Succinate (Toprol Xl) 50 mg PO DAILY [facility] Non-Formulary Medication (Atorvastatin Calcium [Atorvastatin Calcium]) 80 mg PO DAILY [facility] Non-Formulary Medication (Lisinopril [Prinivil]) 20 mg PO DAILY [facility] Non-Formulary Medication (Sertraline Hcl [Sertraline Hcl]) 100 mg PO DAILY [facility] Non-Formulary Medication (Fluticasone/Salmeterol [Advair 250-50 Diskus]) 1 puff INH BID [facility] Omeprazole (Omeprazole) 20 mg PO BID [facility] Ondansetron HCl (Zofran Odt) 4 mg PO Q6H PRN PRN Reason: nausea, able to take PO Ondansetron HCl (Zofran) 4 mg IVPUSH Q4H PRN PRN Reason: Nausea/Vomiting Sodium Chloride (Saline Flush) 10 ml FLUSH ASDIRECTED PRN PRN Reason: Keep Vein Open Last Admin: 09/27/19 19:26 Dose: 10 ml Warfarin Sodium (Pharmacy To Dose - Warfarin) 1 dose .XX ASDIRECTED [facility] Assessment/Plan Comment:: The patient is an 89-year-old with a history of COPD, atrial fibrillation, chronic kidney disease stage III, anticoagulation for atrial fibrillation, dyslipidemia, coronary artery disease, hypothyroidism. Presented and near syncopal episode. Had nausea, an episode of vomiting and loose bowel movement. We'll monitor the patient on telemetry correct electrolytes if abnormal Electrolyte abnormalities When comparing laboratory studies from recent results from [facility] they are quite different. On the laboratory studies from the ER creatinine is 0.9 The patient has a baseline creatinine of 1.5 1.7. Concern that our laboratory measurements were not correct. Will recheck electrolyte panel now Replace electrolytes as needed following that. For atrial fibrillation continue metoprolol for rate control Continue anticoagulation with Coumadin for target INR of 2-3 For now we will have to hold Coumadin since the INR is supratherapeutic Likely have to cut back Coumadin dose on discharge Type 2 diabetes Diet-controlled Will follow blood sugars and supplemental insulin as needed COPD Continue Advair No apparent acute exacerbation DVT prophylaxis with full dose and to correlation with Coumadin
[2019-09-27 22:52] LABS: ANION GAP 11.4
[2019-09-28] MEDS ORDERED: NO WARFARIN DOSE NEEDED PO ONE (03:00)
[2019-09-28] MEDS ORDERED: LEVOTHYROXINE 112 MCG PO SCH (06:00)
[2019-09-28] MEDS ORDERED: OMEPRAZOLE 20 MG PO SCH (06:00)
[2019-09-28 06:54] LABS: ANION GAP 10.8
[2019-09-28] MEDS: Insulin Lispro 100 Units/ML 3 ML Vial SUBCUT SCH ×2 (08:20→11:32)
[2019-09-28 08:21] VITALS: BP 166/82; PULSE 74
[2019-09-28] MEDS ORDERED: METOPROLOL SUCCINATE 50 MG PO SCH (09:00)
[2019-09-28] MEDS ORDERED: CLOPIDOGREL 75 MG PO SCH (09:00)
[2019-09-28] MEDS ORDERED: LISINOPRIL 20 MG PO SCH ×2 (09:00→09:19)
[2019-09-28] MEDS ORDERED: SERTRALINE HCL 100 MG PO SCH (09:00)
[2019-09-28] MEDS ORDERED: DIGOXIN 125 MCG PO SCH (09:00)
[2019-09-28] MEDS ORDERED: FOLIC ACID 1 MG PO SCH (09:00)
[2019-09-28] MEDS ORDERED: Non-Formulary Medication 1 Each (Fluticasone/Salmeterol [Advair 250-50 Diskus] 1 PUFF) INH SCH (09:00)
[2019-09-28] MEDS ORDERED: ISOSORBIDE MONONITRATE 60 MG PO SCH (09:00)
--- NOTE | 2019-09-28 10:58 | PCM.DCSUM1 ---
Discharge Summary - Hospital Course Free Text/Narrative:: on admission: 89-year-old who has been living independently. has a history of COPD, atrial fibrillation, chronic kidney disease stage III, anticoagulation for atrial fibrillation, dyslipidemia, coronary artery disease, hypothyroidism. She has chronic diarrhea with 2-5 bowel movement every day. The bowel movements are relatively large she says. She somewhat poor historian. It appears that she has had no recent problems in the past few days. She developed hot flush, nausea, an episode of vomiting and sudden diarrhea while playing card game. She felt to be but had no syncopal episode. She was brought into the emergency room. She denies chest pain, no abdominal pain, no fever or chills. No cough. She is actually feeling better now. Laboratory studies were abnormal with severe hypokalemia, metabolic acidosis in the emergency room and was referred for hospital admission. hospital course: Presented and near syncopal episode. Had nausea, an episode of vomiting and loose bowel movement. resolved symptoms has been doing well Electrolyte abnormalities When comparing laboratory studies from ER with recent results from [facility] they were quite different. On the laboratory studies from the ER creatinine is 0.9 The patient has a baseline creatinine of 1.5 1.7. rechecked elytes and the new set of results were within reasonable range For atrial fibrillation continue metoprolol for rate control Continue anticoagulation with Coumadin for target INR of 2-3 For now we will have to hold Coumadin since the INR is supratherapeutic will cut back Coumadin dose on discharge Type 2 diabetes Diet-controlled COPD Continue Advair No apparent acute exacerbation Diagnosis: Stroke: No - Discharge Data Discharge Date: 09/28/19 Discharge Disposition: Home, Self-Care 01 Condition: Stable - Referral to Home Health Primary Care Physician: Ji Garduno MD - Discharge Diagnosis/Problem(s) (1) Near syncope SNOMED Code(s): 536378467 ICD Code: R55 - SYNCOPE AND COLLAPSE Status: Acute Current Visit: Yes (2) Diarrhea SNOMED Code(s): 68686991 ICD Code: R19.7 - DIARRHEA, UNSPECIFIED Status: Acute Current Visit: No (3) Vomiting SNOMED Code(s): 755120286 ICD Code: R11.10 - VOMITING, UNSPECIFIED Status: Acute Current Visit: No - Patient Instructions Diet: Heart Healthy Diet Activity: As Tolerated - Discharge Plan *PRESCRIPTION DRUG MONITORING PROGRAM REVIEWED*: No *COPY OF PRESCRIPTION DRUG MONITORING REPORT IN PATIENT AMNA: No Home Medications: Home Meds Albuterol [IJD: Ventolin HFA] 1 - 2 puff INH ASDIRECTED PRN 07/02/16 [History] Clopidogrel Bisulfate [Clopidogrel] 75 mg PO DAILY 07/02/16 [History] Digoxin [Digox] 125 mcg PO DAILY 07/02/16 [History] Fluticasone/Salmeterol [Advair 250-50 Diskus] 1 puff INH BID 07/02/16 [History] Isosorbide Mononitrate [Imdur] 60 mg PO DAILY 07/02/16 [History] Levothyroxine 112 mcg PO DAILY 07/02/16 [History] Lisinopril [Prinivil] 20 mg PO DAILY 07/02/16 [History] Metoprolol Succinate [Toprol XL] 50 mg PO DAILY 07/02/16 [History] Omeprazole 20 mg PO BID 07/02/16 [History] Sertraline HCl 100 mg PO DAILY 07/02/16 [History] atorvaSTATin Calcium [Atorvastatin Calcium] 80 mg PO DAILY 07/02/16 [History] Nitroglycerin [Nitrostat] 0.4 mg SL ASDIRECTED PRN 01/22/18 [History] Folic Acid 1 mg PO DAILY 08/18/18 [History] LORazepam 0.5 - 1 mg PO BEDTIME PRN 05/04/19 [History] Methylcellulose [Citrucel] 500 mg PO DAILY PRN 05/04/19 [History] Warfarin [Coumadin] 2.5 mg PO ASDIRECTED #0 09/28/19 [Rx] Oxygen Therapy Mode: Room Air Patient Handouts: Near-Syncope, [id number] Referrals: Destiny Alexander NP [Nurse Practitioner] - 09/30/19 12:20 pm - Discharge Summary/Plan Comment DC Time >30 min.: No - General Info Date of Service: 09/28/19 Admission Dx/Problem (Free Text: Admission Diagnosis/Problem Admission Diagnosis/Problem near syncope Functional Status: Reports: Tolerating Diet, Ambulating - Review of Systems General: Denies: Fever, Weakness Pulmonary: Denies: Shortness of Breath Cardiovascular: Denies: Chest Pain Gastrointestinal: Denies: Abdominal Pain Genitourinary: Denies: Dysuria Neurological: Denies: Confusion - Patient Data Vitals - Most Recent: Last Vital Signs Temp 36.7 C 09/28/19 08:21 Pulse 74 09/28/19 08:22 Resp 20 09/28/19 08:21 BP 166/82 H 09/28/19 08:22 Pulse Ox 97 09/28/19 08:21 Weight - Most Recent: 66.95 kg I&O - Last 24 hours: Intake & Output 09/27/19 09/28/19 09/28/19 22:59 06:59 14:59 Intake Total 100 735 360 Output Total 600 Balance 100 135 360 Lab Results - Last 24 hrs: Laboratory Results - last 24 hr 09/27/19 09/27/19 09/27/19 Range/Units 18:55 18:55 18:55 WBC 11.2 H (5.0-10.0) 10^3/uL RBC 3.50 L (4.2-5.4) 10^6/uL Hgb 10.2 L D (12.0-16.0) g/dL Hct 32.0 L (37.0-47.0) % MCV 91.4 D (80-100) fL MCH 29.1 (27.0-34.0) pg MCHC 31.9 L (33.0-35.0) g/dL Plt Count 157 D (150-450) 10^3/uL Neut % (Auto) 78.7 H (42.2-75.2) % Lymph % (Auto) 15.2 L (20.5-50.1) % [place] % (Auto) 5.2 (2-8) % Eos % (Auto) 0.8 L (1.0-3.0) % Baso % (Auto) 0.1 (0.0-1.0) % PT 35.1 H (9.0-12.0) SEC INR 3.7 H (0.9-1.2) Sodium 142 (135-145) mmol/L Potassium 2.9 L (3.6-5.0) mmol/L Chloride 122 H D (101-111) mmol/L Carbon Dioxide 15.0 L (21.0-31.0) mmol/L Anion Gap 7.9 BUN 30 H (7-18) mg/dL Creatinine 0.9 (0.6-1.3) mg/dL Est Cr Clr Drug Dosing 33.52 mL/min Estimated GFR (MDRD) 59 BUN/Creatinine Ratio 33.33 Glucose 109 H (74-105) mg/dL POC Glucose (83-110) mg/dl Lactic Acid (0.5-2.2) mmol/L Calcium 5.9 L D (8.4-10.2) mg/dl Phosphorus (2.5-4.6) mg/dL Magnesium (1.8-2.5) mg/dL Total Bilirubin 0.5 (0.2-1.0) mg/dL AST 13 (10-42) IU/L ALT 13 (10-60) IU/L Alkaline Phosphatase 58 (42-121) IU/L Troponin I (0.00-0.02) ng/ml B-Natriuretic Peptide 39 (0-100) pg/ml Total Protein 5.4 L (6.7-8.2) g/dl Albumin 2.7 L (3.2-5.5) g/dl Globulin 2.7 Albumin/Globulin Ratio 1.00 Amylase 44 (28-100) U/L Lipase 46 (22-51) U/L Urine Color (YELLOW) Urine Appearance (CLEAR) Urine pH (5.0-9.0) Ur Specific Barry (1.005-1.030) Urine Protein (NEGATIVE) Urine Glucose (UA) (NEGATIVE) Urine Ketones (NEGATIVE) Urine Occult Blood (NEGATIVE) Urine Nitrite (NEGATIVE) Urine Bilirubin (NEGATIVE) Urine Urobilinogen (0.2-1.0) mg/dL Ur Leukocyte Esterase (NEGATIVE) Urine RBC /HPF Urine WBC (0-5/HPF) /HPF Ur Epithelial Cells (NOT SEEN) /HPF Urine Bacteria (0-FEW/HPF) /HPF Hyaline Casts (NOT SEEN) /LPF Digoxin (0-2.5) ng/ml 09/27/19 09/27/19 09/27/19 Range/Units 18:55 18:55 18:55 WBC (5.0-10.0) 10^3/uL RBC (4.2-5.4) 10^6/uL Hgb (12.0-16.0) g/dL Hct (37.0-47.0) % MCV (80-100) fL MCH (27.0-34.0) pg MCHC (33.0-35.0) g/dL Plt Count (150-450) 10^3/uL Neut % (Auto) (42.2-75.2) % Lymph % (Auto) (20.5-50.1) % [place] % (Auto) (2-8) % Eos % (Auto) (1.0-3.0) % Baso % (Auto) (0.0-1.0) % PT (9.0-12.0) SEC INR (0.9-1.2) Sodium (135-145) mmol/L Potassium (3.6-5.0) mmol/L Chloride (101-111) mmol/L Carbon Dioxide (21.0-31.0) mmol/L Anion Gap BUN (7-18) mg/dL Creatinine (0.6-1.3) mg/dL Est Cr Clr Drug Dosing mL/min Estimated GFR (MDRD) BUN/Creatinine Ratio Glucose (74-105) mg/dL POC Glucose (83-110) mg/dl Lactic Acid 0.7 (0.5-2.2) mmol/L Calcium (8.4-10.2) mg/dl Phosphorus (2.5-4.6) mg/dL Magnesium (1.8-2.5) mg/dL Total Bilirubin (0.2-1.0) mg/dL AST (10-42) IU/L ALT (10-60) IU/L Alkaline Phosphatase (42-121) IU/L Troponin I < 0.02 (0.00-0.02) ng/ml B-Natriuretic Peptide (0-100) pg/ml Total Protein (6.7-8.2) g/dl Albumin (3.2-5.5) g/dl Globulin Albumin/Globulin Ratio Amylase (28-100) U/L Lipase (22-51) U/L Urine Color (YELLOW) Urine Appearance (CLEAR) Urine pH (5.0-9.0) Ur Specific Barry (1.005-1.030) Urine Protein (NEGATIVE) Urine Glucose (UA) (NEGATIVE) Urine Ketones (NEGATIVE) Urine Occult Blood (NEGATIVE) Urine Nitrite (NEGATIVE) Urine Bilirubin (NEGATIVE) Urine Urobilinogen (0.2-1.0) mg/dL Ur Leukocyte Esterase (NEGATIVE) Urine RBC /HPF Urine WBC (0-5/HPF) /HPF Ur Epithelial Cells (NOT SEEN) /HPF Urine Bacteria (0-FEW/HPF) /HPF Hyaline Casts (NOT SEEN) /LPF Digoxin 0.5 (0-2.5) ng/ml 09/27/19 09/27/19 09/28/19 Range/Units 21:25 22:23 02:30 WBC (5.0-10.0) 10^3/uL RBC (4.2-5.4) 10^6/uL Hgb (12.0-16.0) g/dL Hct (37.0-47.0) % MCV (80-100) fL MCH (27.0-34.0) pg MCHC (33.0-35.0) g/dL Plt Count (150-450) 10^3/uL Neut % (Auto) (42.2-75.2) % Lymph % (Auto) (20.5-50.1) % [place] % (Auto) (2-8) % Eos % (Auto) (1.0-3.0) % Baso % (Auto) (0.0-1.0) % PT (9.0-12.0) SEC INR (0.9-1.2) Sodium 138 (135-145) mmol/L Potassium 4.4 D (3.6-5.0) mmol/L Chloride 111 (101-111) mmol/L Carbon Dioxide 20.0 L (21.0-31.0) mmol/L Anion Gap 11.4 BUN 40 H (7-18) mg/dL Creatinine 1.3 (0.6-1.3) mg/dL Est Cr Clr Drug Dosing 23.20 mL/min Estimated GFR (MDRD) 39 BUN/Creatinine Ratio Glucose 167 H (74-105) mg/dL POC Glucose 130 H (83-110) mg/dl Lactic Acid (0.5-2.2) mmol/L Calcium 8.4 D (8.4-10.2) mg/dl Phosphorus (2.5-4.6) mg/dL Magnesium (1.8-2.5) mg/dL Total Bilirubin (0.2-1.0) mg/dL AST (10-42) IU/L ALT (10-60) IU/L Alkaline Phosphatase (42-121) IU/L Troponin I (0.00-0.02) ng/ml B-Natriuretic Peptide (0-100) pg/ml Total Protein (6.7-8.2) g/dl Albumin (3.2-5.5) g/dl Globulin Albumin/Globulin Ratio Amylase (28-100) U/L Lipase (22-51) U/L Urine Color Yellow (YELLOW) Urine Appearance Clear (CLEAR) Urine pH 5.5 (5.0-9.0) Ur Specific Barry 1.020 (1.005-1.030) Urine Protein Trace H (NEGATIVE) Urine Glucose (UA) Negative (NEGATIVE) Urine Ketones Negative (NEGATIVE) Urine Occult Blood Negative (NEGATIVE) Urine Nitrite Negative (NEGATIVE) Urine Bilirubin Negative (NEGATIVE) Urine Urobilinogen 0.2 (0.2-1.0) mg/dL Ur Leukocyte Esterase Small H (NEGATIVE) Urine RBC 0-5 /HPF Urine WBC 5-10 H (0-5/HPF) /HPF Ur Epithelial Cells Few (NOT SEEN) /HPF Urine Bacteria Few (0-FEW/HPF) /HPF Hyaline Casts Occasional H (NOT SEEN) /LPF Digoxin (0-2.5) ng/ml 09/28/19 09/28/19 09/28/19 Range/Units 05:40 05:40 05:40 WBC 7.1 (5.0-10.0) 10^3/uL RBC 4.04 L (4.2-5.4) 10^6/uL Hgb 11.8 L D (12.0-16.0) g/dL Hct 36.9 L (37.0-47.0) % MCV 91.3 (80-100) fL MCH 29.2 (27.0-34.0) pg MCHC 32.0 L (33.0-35.0) g/dL Plt Count 155 (150-450) 10^3/uL Neut % (Auto) 62.2 (42.2-75.2) % Lymph % (Auto) 30.4 (20.5-50.1) % [place] % (Auto) 6.1 (2-8) % Eos % (Auto) 1.0 (1.0-3.0) % Baso % (Auto) 0.3 (0.0-1.0) % PT 30.0 H (9.0-12.0) SEC INR 3.1 H (0.9-1.2) Sodium 140 (135-145) mmol/L Potassium 4.8 (3.6-5.0) mmol/L Chloride 113 H (101-111) mmol/L Carbon Dioxide 21.0 (21.0-31.0) mmol/L Anion Gap 10.8 BUN 36 H (7-18) mg/dL Creatinine 1.3 (0.6-1.3) mg/dL Est Cr Clr Drug Dosing 23.20 mL/min Estimated GFR (MDRD) 39 BUN/Creatinine Ratio Glucose 101 (74-105) mg/dL POC Glucose (83-110) mg/dl Lactic Acid (0.5-2.2) mmol/L Calcium 8.3 L (8.4-10.2) mg/dl Phosphorus 2.3 L (2.5-4.6) mg/dL Magnesium 1.6 L (1.8-2.5) mg/dL Total Bilirubin (0.2-1.0) mg/dL AST (10-42) IU/L ALT (10-60) IU/L Alkaline Phosphatase (42-121) IU/L Troponin I (0.00-0.02) ng/ml B-Natriuretic Peptide (0-100) pg/ml Total Protein (6.7-8.2) g/dl Albumin (3.2-5.5) g/dl Globulin Albumin/Globulin Ratio Amylase (28-100) U/L Lipase (22-51) U/L Urine Color (YELLOW) Urine Appearance (CLEAR) Urine pH (5.0-9.0) Ur Specific Barry (1.005-1.030) Urine Protein (NEGATIVE) Urine Glucose (UA) (NEGATIVE) Urine Ketones (NEGATIVE) Urine Occult Blood (NEGATIVE) Urine Nitrite (NEGATIVE) Urine Bilirubin (NEGATIVE) Urine Urobilinogen (0.2-1.0) mg/dL Ur Leukocyte Esterase (NEGATIVE) Urine RBC /HPF Urine WBC (0-5/HPF) /HPF Ur Epithelial Cells (NOT SEEN) /HPF Urine Bacteria (0-FEW/HPF) /HPF Hyaline Casts (NOT SEEN) /LPF Digoxin (0-2.5) ng/ml 09/28/19 Range/Units 07:58 WBC (5.0-10.0) 10^3/uL RBC (4.2-5.4) 10^6/uL Hgb (12.0-16.0) g/dL Hct (37.0-47.0) % MCV (80-100) fL MCH (27.0-34.0) pg MCHC (33.0-35.0) g/dL Plt Count (150-450) 10^3/uL Neut % (Auto) (42.2-75.2) % Lymph % (Auto) (20.5-50.1) % [place] % (Auto) (2-8) % Eos % (Auto) (1.0-3.0) % Baso % (Auto) (0.0-1.0) % PT (9.0-12.0) SEC INR (0.9-1.2) Sodium (135-145) mmol/L Potassium (3.6-5.0) mmol/L Chloride (101-111) mmol/L Carbon Dioxide (21.0-31.0) mmol/L Anion Gap BUN (7-18) mg/dL Creatinine (0.6-1.3) mg/dL Est Cr Clr Drug Dosing mL/min Estimated GFR (MDRD) BUN/Creatinine Ratio Glucose (74-105) mg/dL POC Glucose 88 (83-110) mg/dl Lactic Acid (0.5-2.2) mmol/L Calcium (8.4-10.2) mg/dl Phosphorus (2.5-4.6) mg/dL Magnesium (1.8-2.5) mg/dL Total Bilirubin (0.2-1.0) mg/dL AST (10-42) IU/L ALT (10-60) IU/L Alkaline Phosphatase (42-121) IU/L Troponin I (0.00-0.02) ng/ml B-Natriuretic Peptide (0-100) pg/ml Total Protein (6.7-8.2) g/dl Albumin (3.2-5.5) g/dl Globulin Albumin/Globulin Ratio Amylase (28-100) U/L Lipase (22-51) U/L Urine Color (YELLOW) Urine Appearance (CLEAR) Urine pH (5.0-9.0) Ur Specific Barry (1.005-1.030) Urine Protein (NEGATIVE) Urine Glucose (UA) (NEGATIVE) Urine Ketones (NEGATIVE) Urine Occult Blood (NEGATIVE) Urine Nitrite (NEGATIVE) Urine Bilirubin (NEGATIVE) Urine Urobilinogen (0.2-1.0) mg/dL Ur Leukocyte Esterase (NEGATIVE) Urine RBC /HPF Urine WBC (0-5/HPF) /HPF Ur Epithelial Cells (NOT SEEN) /HPF Urine Bacteria (0-FEW/HPF) /HPF Hyaline Casts (NOT SEEN) /LPF Digoxin (0-2.5) ng/ml ESTELA Results - Last 24 hrs: Microbiology 09/27/19 18:44 Stool Occult Blood (ESTELA) - Final Stool / Feces - Stool, Liquid NEGATIVE OCCULT BLOOD REFERENCE RANGE: NEGATIVE Med Orders - Current: Current Medications Acetaminophen (Tylenol) 650 mg PO Q4H PRN PRN Reason: Pain (Mild 1-3)/fever Albuterol/Ipratropium (Duoneb 3.0-0.5 Mg/3 Ml) 3 ml NEB Q2H PRN PRN Reason: sob Clopidogrel Bisulfate (Plavix) 75 mg PO DAILY [facility] Dextrose/Water (Dextrose 50% In Water) 25 ml IVPUSH Q1H PRN PRN Reason: blood sugar <70 Digoxin (Lanoxin) 125 mcg PO DAILY [facility] Folic Acid (Folic Acid) 1 mg PO DAILY [facility] Last Admin: 09/28/19 08:23 Dose: 1 mg Lactated Ringer's (Ringers, Lactated) 1,000 mls @ 75 mls/hr IV ASDIRECTED [facility] Last Admin: 09/27/19 22:32 Dose: 75 mls/hr Insulin Human Lispro (Humalog) 0 unit SUBCUT ACBED [facility]; Protocol Last Admin: 09/28/19 08:20 Dose: Not Given Isosorbide Mononitrate (Imdur) 60 mg PO DAILY [facility] Levothyroxine Sodium (Levothyroxine) 112 mcg PO ACBREAKFAST [facility] Lisinopril (Prinivil) 20 mg PO DAILY [facility] Lorazepam (Ativan) 0.5 mg PO BEDTIME PRN PRN Reason: Sleep Metoprolol Succinate (Toprol Xl) 50 mg PO DAILY [facility] Atorvastatin Calcium [Atorvastatin Calcium] 80 MgPtom 80 mg PO BEDTIME [facility] Sertraline Hcl [ Sertraline Hcl] 100 MgPtom 100 mg PO DAILY [facility] Last Admin: 09/28/19 08:21 Dose: 100 mg Non-Formulary Medication (Fluticasone/Salmeterol [Advair 250-50 Diskus]) 1 puff INH BID [facility] Omeprazole (Omeprazole) 20 mg PO BIDAC [facility] Ondansetron HCl (Zofran Odt) 4 mg PO Q6H PRN PRN Reason: nausea, able to take PO Ondansetron HCl (Zofran) 4 mg IVPUSH Q4H PRN PRN Reason: Nausea/Vomiting Sodium Chloride (Saline Flush) 10 ml FLUSH ASDIRECTED PRN PRN Reason: Keep Vein Open Last Admin: 09/27/19 19:26 Dose: 10 ml Warfarin Sodium (Pharmacy To Dose - Warfarin) 1 dose .XX ASDIRECTED [facility] Warfarin Sodium (Coumadin) 1 mg PO ONETIME ONE Stop: 09/28/19 14:01 Discontinued Medications Clopidogrel Bisulfate (Plavix) 75 mg PO DAILY [facility] Last Admin: 09/28/19 08:27 Dose: 75 mg Digoxin (Lanoxin) 125 mcg PO DAILY [facility] Last Admin: 09/28/19 08:20 Dose: 125 mcg Potassium Chloride 10 meq/ (Premix) 100 mls @ 100 mls/hr IV ONETIME ONE Stop: 09/27/19 20:24 Last Admin: 09/27/19 19:35 Dose: 50 mls/hr Isosorbide Mononitrate (Imdur) 60 mg PO DAILY [facility] Last Admin: 09/28/19 08:26 Dose: 60 mg Levothyroxine Sodium (Levothyroxine) 112 mcg PO ACBREAKFAST [facility] Last Admin: 09/28/19 06:29 Dose: 112 mcg Lisinopril (Prinivil) 20 mg PO DAILY [facility] Metoprolol Succinate (Toprol Xl) 50 mg PO DAILY [facility] Last Admin: 09/28/19 08:22 Dose: 50 mg Lisinopril [Prinivil (] 20 MgPtom) 20 mg PO DAILY [facility] Last Admin: 09/28/19 08:27 Dose: 20 mg No Warfarin Dose (Needed) 1 each PO ONETIME ONE Stop: 09/28/19 03:01 Last Admin: 09/28/19 03:10 Dose: Not Given Omeprazole (Omeprazole) 20 mg PO BIDAC [facility] Last Admin: 09/28/19 06:29 Dose: 20 mg Ondansetron HCl (Zofran) 4 mg IV ONETIME ONE Stop: 09/27/19 18:44 Last Admin: 09/27/19 18:57 Dose: 4 mg Temazepam (Restoril) 15 mg PO BEDTIME PRN PRN Reason: Sleep - Exam General: Reports: Alert, Oriented Lungs: Reports: Clear to Auscultation, Normal Respiratory Effort Cardiovascular: Reports: Irregular Rhythm. Denies: Bradycardia, Tachycardia GI/Abdominal Exam: Normal Bowel Sounds, Soft, Non-Tender Extremities: No Pedal Edema Skin: Reports: Warm, Dry Neurological: Reports: No New Focal Deficit Psy/Mental Status: Reports: Alert, Normal Affect
[2019-09-28] MEDS ORDERED: Omeprazole 20 MG Cap.CR**OWN MED PO SCH (16:00)
[2019-09-28] MEDS ORDERED: ATORVASTATIN CALCIUM 80 MG PO SCH (21:00)
[2019-09-29] MEDS ORDERED: Levothyroxine 112 MCG Tab**OWN MED PO SCH (06:00)
[2019-09-29] MEDS ORDERED: DIGOXIN 125 MCG PO SCH (09:00)
[2019-09-29] MEDS ORDERED: Metoprolol Succinate 50 MG Tab.ER**OWN MED PO SCH (09:00)
[2019-09-29] MEDS ORDERED: CLOPIDOGREL 75 MG PO SCH (09:00)
[2019-09-29] MEDS ORDERED: ISOSORBIDE MONONITRATE 60 MG PO SCH (09:00)
[2019-09-29] MEDS ORDERED: LISINOPRIL 20 MG PO SCH (09:00)
== END 2019-09-28 13:30 | disposition home or self-care (01) ==
LOC: DL.ED 18:25 → DL.MS 19:43
PROVIDERS: ADMIT Internal Medicine; ATTEND Internal Medicine
DX: R55 Syncope and collapse (principal); E87.8 Other disorders of electrolyte and fluid balance, not elsewhere classified; I48.91 Unspecified atrial fibrillation; J44.9 Chronic obstructive pulmonary disease, unspecified; R19.7 Diarrhea, unspecified; I12.9 Hypertensive chronic kidney disease with stage 1 through stage 4 chronic kidney disease, or unspecified chronic kidney disease; E11.22 Type 2 diabetes mellitus with diabetic chronic kidney disease; N18.3 Chronic kidney disease, stage 3 (moderate); R11.10 Vomiting, unspecified; E78.00 Pure hypercholesterolemia, unspecified; K21.9 Gastro-esophageal reflux disease without esophagitis; E03.9 Hypothyroidism, unspecified; F41.9 Anxiety disorder, unspecified; F32.9 Major depressive disorder, single episode, unspecified; E66.9 Obesity, unspecified; Z79.899 Other long term (current) drug therapy; Z79.02 Long term (current) use of antithrombotics/antiplatelets; Z88.6 Allergy status to analgesic agent; Z88.5 Allergy status to narcotic agent; Z88.8 Allergy status to other drugs, medicaments and biological substances
CPT/HCPCS: 36415; 80048; 80053; 80162; 81001; 82150; 82272; 82962; 83605; 83690; 83735; 83880; 84100; 84484; 85025; 85610; 87045; 87086; 87493; 87899; 93005; 96365; 96375; 99285; A9270; J2405; J3480; J7120; 87046; 87324; 99284; G0378

== ENCOUNTER 2019-10-28 12:22 | Observation (INO) | payer MEDICARE, BC ==
[2019-10-28] MEDS ORDERED: LORazepam 0.5 MG Tab PO PRN (14:27)
[2019-10-28] MEDS ORDERED: Albuterol/Ipratropium 3.0-0.5 MG/3 ML Neb Soln NEB PRN (14:30)
--- NOTE | 2019-10-28 14:56 | PCM.HP ---
H&P History of Present Illness - General Date of Service: 10/28/19 Admit Problem/Dx: abdominal pain Source of Information: Patient - History of Present Illness Initial Comments - Free Text/Narative: 89-year-old with a history of atrial fibrillation, hypertension. She has a history of prior diverticulitis episodes. The patient presented with the left lower quadrant abdominal pain that started about a week prior to presentation. The pain is constant. Not associated with nausea vomiting. Did have a temperature of 100.4 in the clinic. She reports loose bowel movements in the past day. But only small amount. No abdominal bloating. Food is not changing the pain. Has been able to eat. The patient shortness of breath is at baseline. No chest pain. - Related Data Allergies/Adverse Reactions: Allergies Allergy/AdvReac Type Severity Reaction Status Date / Time codeine Allergy Cannot Verified 10/28/19 12:54 Remember propoxyphene Allergy Nausea and Verified 10/28/19 12:54 [From Rosa Elena-N] Vomiting Home Medications: Home Meds Albuterol [IJD: Ventolin HFA] 2 puff INH QID PRN 07/02/16 [History] Clopidogrel Bisulfate [Clopidogrel] 75 mg PO DAILY 07/02/16 [History] Digoxin [Digox] 125 mcg PO DAILY 07/02/16 [History] Fluticasone/Salmeterol [Advair 250-50 Diskus] 1 puff INH BID 07/02/16 [History] Isosorbide Mononitrate [Imdur] 90 mg PO DAILY 07/02/16 [History] Levothyroxine 112 mcg PO DAILY 07/02/16 [History] Metoprolol Succinate [Toprol XL] 50 mg PO DAILY 07/02/16 [History] Omeprazole 20 mg PO DAILY 07/02/16 [History] Sertraline HCl 100 mg PO DAILY 07/02/16 [History] atorvaSTATin Calcium [Atorvastatin Calcium] 80 mg PO DAILY 07/02/16 [History] Nitroglycerin [Nitrostat] 0.4 mg SL ASDIRECTED PRN 01/22/18 [History] Folic Acid 1 mg PO DAILY 08/18/18 [History] LORazepam 0.5 mg PO BEDTIME PRN 05/04/19 [History] Methylcellulose [Citrucel] 500 mg PO DAILY PRN 05/04/19 [History] Furosemide 20 mg PO .MOWEDFRI 10/28/19 [History] Warfarin [Coumadin] 5 mg PO DAILY 10/28/19 [History] lisinopriL [Lisinopril] 10 mg PO DAILY 10/28/19 [History] Past Medical History HEENT History: Reports: Cataract, Hard of Hearing, Impaired Vision Cardiovascular History: Reports: Afib, Blood Clots/VTE/DVT, CAD, High Cholesterol, Hypertension, SOB on Exertion, Other (See Below) Other Cardiovascular History: PAROXYSMAL SUPRAVENTRICULAR TACHYCARDIA Respiratory History: Reports: COPD, Sleep Apnea, SOB Other Respiratory History: ANGELINA Gastrointestinal History: Reports: GERD Genitourinary History: Reports: None [employer] History: Reports: Musculoskeletal History: Reports: Fracture, Other (See Below) Other Musculoskeletal History: right femur fracture Neurological History: Reports: None Psychiatric History: Reports: Anxiety, Depression Endocrine/Metabolic History: Reports: Diabetes, Type II, Hypothyroidism Hematologic History: Reports: Anemia Immunologic History: Reports: None Oncologic (Cancer) History: Reports: Breast, Other (See Below) Other Oncologic History: "skin cancer on face" Dermatologic History: Reports: None - Infectious Disease History Infectious Disease History: Reports: Chicken Pox, Measles, Mumps - Past Surgical History HEENT Surgical History: Reports: Cataract Surgery Cardiovascular Surgical History: Reports: Coronary Artery Stent Respiratory Surgical History: Reports: None GI Surgical History: Reports: Appendectomy, Colostomy, EGD Female Surgical History: Reports: Hysterectomy, Mastectomy Other Female Surgeries/Procedures: Left mastectomy Endocrine Surgical History: Reports: None Musculoskeletal Surgical History: Reports: None Oncologic Surgical History: Reports: Mastectomy Social & Family History - Family History Family Medical History: Noncontributory - Tobacco Use Smoking Status *Q: Never Smoker Second Hand Smoke Exposure: No - Caffeine Use Caffeine Use: Reports: Coffee Other Caffeine Use: drinks decaff. - Recreational Drug Use Recreational Drug Use: No H&P Review of Systems - Review of Systems: Review Of Systems: See Below General: Reports: Fever. Denies: Chills Pulmonary: Reports: Shortness of Breath (Chronic, not worse) Cardiovascular: Denies: Chest Pain, Edema Gastrointestinal: Reports: Abdominal Pain Genitourinary: Denies: Dysuria Psychiatric: Denies: Confusion Exam - Exam Exam: See Below - Vital Signs Vital Signs: Last Vital Signs Temp 37.8 C 10/28/19 12:31 Pulse 89 10/28/19 12:31 Resp 20 10/28/19 12:31 BP 132/64 10/28/19 12:31 Pulse Ox 98 10/28/19 12:31 Weight: 67.132 kg - Exam General: Alert, Oriented Neck: Supple Lungs: Clear to Auscultation, Normal Respiratory Effort, Decreased Breath Sounds Cardiovascular: Irregular Rhythm GI/Abdominal Exam: Normal Bowel Sounds, Soft, Non-Tender Rectal (Female) Exam: Normal Exam Extremities: No Pedal Edema - Problem List (1) Abdominal pain SNOMED Code(s): 85211253 ICD Code: R10.9 - UNSPECIFIED ABDOMINAL PAIN Status: Acute Current Visit : Yes (2) COPD (chronic obstructive pulmonary disease) SNOMED Code(s): 01283838 ICD Code: J44.9 - CHRONIC OBSTRUCTIVE PULMONARY DISEASE, UNSPECIFIED Status : Acute Current Visit: Yes (3) History of atrial fibrillation SNOMED Code(s): 825882491 ICD Code: Z86.79 - PERSONAL HISTORY OF OTHER DISEASES OF THE CIRCULATORY SYSTEM Status: Acute Current Visit: No Problem List Initiated/Reviewed/Updated: Yes Orders Last 24hrs: Active Orders 24 hr Category Date Time Status RT Aerosol Therapy [RC] ASDIRECTED Care 10/28/19 14:30 Active Abdomen Pelvis w Cont [CT] Routine Exams 10/28/19 14:16 Ordered BASIC METABOLIC PANEL,BMP [CHEM] Routine Lab 10/28/19 14:27 Received CBC WITH AUTO DIFF [HEME] Routine Lab 10/28/19 14:27 Received CULTURE BLOOD [BC] Stat Lab 10/28/19 14:27 Received CULTURE BLOOD [BC] Stat Lab 10/28/19 14:34 Received CULTURE URINE [RM] Routine Lab 10/28/19 14:15 Ordered HEPATIC FUNCTION PANEL,HFP [CHEM] Routine Lab 10/28/19 14:27 Received INR,PT,PROTHROMBIN TIME [COAG] Routine Lab 10/28/19 14:27 Received LACTIC ACID [CHEM] Routine Lab 10/28/19 14:27 Received LIPASE [CHEM] Routine Lab 10/28/19 14:27 Received UA W/MICROSCOPIC [URIN] Routine Lab 10/28/19 14:15 Ordered Albuterol/Ipratropium [DuoNeb 3.0-0.5 MG/3 ML] Med 10/28/19 14:30 Ordered 3 ml NEB Q2H PRN Albuterol/Ipratropium [DuoNeb 3.0-0.5 MG/3 ML] Med 10/28/19 18:00 Ordered 3 ml NEB Q6HRRT Budesonide [Pulmicort] Med 10/28/19 18:00 Ordered 0.5 mg NEB BIDRT Clopidogrel [Plavix] Med 10/29/19 09:00 Ordered 75 mg PO DAILY Digoxin [Lanoxin] Med 10/29/19 09:00 Ordered 125 mcg PO DAILY Folic Acid Med 10/29/19 09:00 Ordered 1 mg PO DAILY Furosemide [Lasix] Med 10/28/19 14:30 Ordered 20 mg PO .MOWEDFRI Isosorbide Mononitrate [Imdur] Med 10/29/19 09:00 Ordered 90 mg PO DAILY LORazepam [Ativan] Med 10/28/19 14:27 Ordered 0.5 mg PO BEDTIME PRN Levothyroxine Med 10/29/19 09:00 Ordered 112 mcg PO DAILY Metoprolol Succinate [Toprol XL] Med 10/29/19 09:00 Ordered 50 mg PO DAILY Omeprazole Med 10/29/19 09:00 Ordered 20 mg PO DAILY Pharmacy to Dose - Warfarin Med 10/28/19 14:30 Ordered 1 dose .XX ASDIRECTED Sertraline HCl [Sertraline HCl] Med 10/29/19 09:00 Ordered 100 mg PO DAILY lisinopriL [Prinivil] Med 10/29/19 09:00 Ordered 10 mg PO DAILY Blood Culture x2 Reflex Set [OM.PC] Stat Oth 10/28/19 14:15 Ordered Medication Orders Albuterol/Ipratropium (Duoneb 3.0-0.5 Mg/3 Ml) 3 ml NEB Q6HRRT DEBI Albuterol/Ipratropium (Duoneb 3.0-0.5 Mg/3 Ml) 3 ml NEB Q2H PRN PRN Reason: sob Budesonide (Pulmicort) 0.5 mg NEB BIDRT [facility]BI Clopidogrel Bisulfate (Plavix) 75 mg PO DAILY [facility] Digoxin (Lanoxin) 125 mcg PO DAILY [facility] Folic Acid (Folic Acid) 1 mg PO DAILY [facility] Furosemide (Lasix) 20 mg PO .MOWEDFRI [facility] Isosorbide Mononitrate (Imdur) 90 mg PO DAILY [facility] Levothyroxine Sodium (Levothyroxine) 112 mcg PO DAILY [facility] Lisinopril (Prinivil) 10 mg PO DAILY [facility] Lorazepam (Ativan) 0.5 mg PO BEDTIME PRN PRN Reason: Sleep Metoprolol Succinate (Toprol Xl) 50 mg PO DAILY [facility] Non-Formulary Medication (Sertraline Hcl [Sertraline Hcl]) 100 mg PO DAILY [facility] Omeprazole (Omeprazole) 20 mg PO DAILY [facility] Warfarin Sodium (Pharmacy To Dose - Warfarin) 1 dose .XX ASDIRECTED [facility] Assessment/Plan Comment:: 89-year-old presented with abdominal pain. History diverticulitis. The patient was found to have a temperature of 100.4 in the clinic. Abdominal pain Likely diverticulitis We will obtain CT to confirm this diagnosis We will obtain urinalysis, urine culture, blood culture Obtain liver enzyme CBC and electrolytes, Start the patient empirically on Zosyn History of COPD No apparent acute exacerbation Treat with Pulmicort, DuoNeb as needed Atrial fibrillation, chronic, controlled ventricular rate Continue metoprolol for rate control Continue Coumadin for anticoagulation unless surgical needs d/w dr. Daniel the referral physician
[2019-10-28 15:06] LABS: ANION GAP 14.2
[2019-10-28] MEDS ORDERED: Acetaminophen 325 MG Tab PO PRN (15:09)
[2019-10-28] MEDS ORDERED: Ondansetron 4 MG Tab.DIS PO PRN (15:09)
[2019-10-28] MEDS ORDERED: Docusate Sodium 100 MG Cap PO PRN (15:09)
[2019-10-28] MEDS ORDERED: Temazepam 15 MG Cap PO PRN (15:09)
[2019-10-28] MEDS ORDERED: oxyCODONE 5 MG Tab PO PRN (15:09)
[2019-10-28] MEDS ORDERED: Potassium Chloride 10 MEQ Tab.ER PO ONE (16:06)
--- NOTE | 2019-10-28 16:51 | CT ---
EXAMINATION: Abdomen Pelvis w Cont SEX: Female AGE: 89 years CLINICAL HISTORY: 89-year-old hospitalized 148 pound hypertensive, FEBRILE diabetic female with history of left mastectomy (breast cancer), appendectomy, hysterectomy, and now ABDOMINAL PAIN. Scan technique: Volume acquisition of data from the abdomen and pelvis obtained without oral contrast but during intravenous infusion 75 cc nonionic Isovue contrast (3 cc/s via injector) while patient was lying supine on the Siemens multislice scanner [place], [place]. All data archived in the PACS system for storage, reformatting axial/sagittal/coronal planes and study. INTERPRETATION: 1. Numerous [place] DIVERTICULA identified along the course of the descending left colon without current signs of associated inflammation i.e. no pericolonic inflammatory "dirty" peritoneal fat, abscess or mechanical bowel obstruction. 2. 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 Normal appearance contralateral right kidney. No sign of urolithiasis or obstructive uropathy on the right. Incompletely filled normal appearing midline urinary bladder. (Numerous phlebolith-like radiopacities both sides of the pelvis) 3. Densely calcified "cast" normal caliber aortoiliac vessels. No aneurysm or dissection. 4. Liver, stomach, spleen and atrophic pancreas unremarkable. Normal adrenal glands. 5. Insufficiency fracture osteopenic L4 vertebral body. Multilevel disc disease. 6. No pelvic or abdominal mass lesion. No sign of mechanical bowel obstruction (normal terminal ileum), ascites or free air. 7. Tiny cluster GALLSTONES in the dependent portion of distended gallbladder RUQ. Normal biliary ducts. CONCLUSION: Cholelithiasis. Diverticulosis sigmoid and left colon. 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
[2019-10-28] MEDS ORDERED: Iopamidol 612 MG/ML 100 ML Bottle IVPUSH ONE (16:57)
[2019-10-28] MEDS: Piperacillin/Tazobactam 3.375 GM in Sodium Chloride 0.9% 100 ML IV SCH ×2 (17:11→23:35)
[2019-10-28] MEDS: FUROSEMIDE 20 MG PO SCH (17:16)
[2019-10-28] MEDS: Budesonide 0.5 MG/2 ML Neb Susp NEB SCH (18:40)
[2019-10-28] MEDS: Albuterol/Ipratropium 3.0-0.5 MG/3 ML Neb Soln NEB SCH (18:40)
[2019-10-28] MEDS ORDERED: Heparin Sodium 5,000 Units/ML Vial SUBCUT SCH (22:00)
[2019-10-29] MEDS: Albuterol/Ipratropium 3.0-0.5 MG/3 ML Neb Soln NEB SCH ×4 (00:35→18:37)
[2019-10-29] MEDS: Sodium Chloride 0.9% 10 ML Syringe FLUSH PRN ×2 (00:38→05:20)
[2019-10-29] MEDS: Omeprazole 20 MG Cap.CR **PT OWN MED PO SCH (05:10)
[2019-10-29] MEDS: LEVOTHYROXINE 112 MCG PO SCH (05:11)
[2019-10-29] MEDS: Piperacillin/Tazobactam 3.375 GM in Sodium Chloride 0.9% 100 ML IV SCH ×3 (05:21→18:10)
[2019-10-29 07:08] LABS: ANION GAP 13.3
[2019-10-29] MEDS: Budesonide 0.5 MG/2 ML Neb Susp NEB SCH ×2 (07:16→18:37)
[2019-10-29] MEDS: Clopidogrel 75 MG Tab **PT OWN MED PO SCH (08:47)
[2019-10-29] MEDS: SERTRALINE HCL 100 MG PO SCH (08:51)
[2019-10-29] MEDS: ISOSORBIDE MONONITRATE 60 MG PO SCH (08:53)
[2019-10-29] MEDS: DIGOXIN 125 MCG PO SCH (08:54)
[2019-10-29] MEDS: FOLIC ACID 1 MG PO SCH (08:54)
[2019-10-29] MEDS: LISINOPRIL 20 MG PO SCH (08:54)
[2019-10-29] MEDS ORDERED: Metoprolol Succinate 50 MG Tab.ER **PT OWN MED PO SCH (09:00)
[2019-10-29] MEDS ORDERED: Potassium Chloride 10 MEQ Tab.ER PO ONE (12:11)
[2019-10-29] MEDS ORDERED: Phytonadione ORAL 2.5mg/2.5ml Soln Simple Syrup U/D PO ONE (12:11)
[2019-10-29] MEDS ORDERED: Metoprolol Succinate 50 MG Tab.ER **PT OWN MED PO ONE (12:14)
--- NOTE | 2019-10-29 12:22 | PCM.PN ---
- General Info Date of Service: 10/29/19 Admission Dx/Problem (Free Text): abdominal pain Subjective Update: abdominal pain is better fever s down feeling hungry - would like to eat more no sob, no cp this morning she felt "chest pounding" this happens to her sometimes - rapid HR was also noted earlier resolved by now - Review of Systems General: Reports: Fever, Weakness Pulmonary: Denies: Shortness of Breath Cardiovascular: Reports: Palpitations. Denies: Chest Pain Gastrointestinal: Reports: Abdominal Pain (improved) Genitourinary: Denies: Dysuria Neurological: Denies: Confusion - Patient Data Vitals - Most Recent: Last Vital Signs Temp 37.1 C 10/29/19 11:33 Pulse 93 10/29/19 11:33 Resp 20 10/29/19 11:33 BP 147/91 H 10/29/19 11:33 Pulse Ox 99 10/29/19 11:33 Weight - Most Recent: 67.132 kg I&O - Last 24 Hours: Intake & Output 10/28/19 10/29/19 10/29/19 22:59 06:59 14:59 Intake Total 510 200 200 Output Total 400 200 Balance 110 0 200 Lab Results Last 24 Hours: Laboratory Results - last 24 hr 10/28/19 10/28/19 10/28/19 Range/Units 14:27 14:27 14:27 WBC 10.3 H (5.0-10.0) 10^3/uL RBC 3.83 L (4.2-5.4) 10^6/uL Hgb 11.4 L (12.0-16.0) g/dL Hct 34.7 L (37.0-47.0) % MCV 90.6 (80-100) fL MCH 29.8 (27.0-34.0) pg MCHC 32.9 L (33.0-35.0) g/dL Plt Count 184 (150-450) 10^3/uL Neut % (Auto) 80.0 H (42.2-75.2) % Lymph % (Auto) 13.5 L (20.5-50.1) % [place] % (Auto) 6.1 (2-8) % Eos % (Auto) 0.3 L (1.0-3.0) % Baso % (Auto) 0.1 (0.0-1.0) % PT 57.2 H D (9.0-12.0) SEC INR 6.2 H* (0.9-1.2) Sodium 137 (135-145) mmol/L Potassium 3.2 L D (3.6-5.0) mmol/L Chloride 106 (101-111) mmol/L Carbon Dioxide 20.0 L (21.0-31.0) mmol/L Anion Gap 14.2 BUN 21 H (7-18) mg/dL Creatinine 1.2 (0.6-1.3) mg/dL Est Cr Clr Drug Dosing 23.98 mL/min Estimated GFR (MDRD) 42 Glucose 115 H (74-105) mg/dL Lactic Acid (0.5-2.0) mmol/L Calcium 8.3 L (8.4-10.2) mg/dl Total Bilirubin 0.8 (0.2-1.0) mg/dL Direct Bilirubin 0.2 (0.0-0.2) mg/dL Indirect Bilirubin 0.6 AST 15 (10-42) IU/L ALT 13 (10-60) IU/L Alkaline Phosphatase 92 (42-121) IU/L Total Protein 6.9 (6.7-8.2) g/dl Albumin 3.1 L (3.2-5.5) g/dl Globulin 3.8 Albumin/Globulin Ratio 0.82 Lipase 35 (22-51) U/L Urine Color (YELLOW) Urine Appearance (CLEAR) Urine pH (5.0-9.0) Ur Specific [place] (1.005-1.030) Urine Protein (NEGATIVE) Urine Glucose (UA) (NEGATIVE) Urine Ketones (NEGATIVE) Urine Occult Blood (NEGATIVE) Urine Nitrite (NEGATIVE) Urine Bilirubin (NEGATIVE) Urine Urobilinogen (0.2-1.0) mg/dL Ur Leukocyte Esterase (NEGATIVE) Urine RBC /HPF Urine WBC (0-5/HPF) /HPF Ur Epithelial Cells (NOT SEEN) /HPF Amorphous Sediment (NOT SEEN) /HPF Urine Bacteria (0-FEW/HPF) /HPF Hyaline Casts (NOT SEEN) /LPF Urine Mucus (NOT SEEN) /LPF 10/28/19 10/28/19 10/29/19 Range/Units 14:27 15:58 06:03 WBC 8.0 (5.0-10.0) 10^3/uL RBC 3.68 L (4.2-5.4) 10^6/uL Hgb 10.7 L (12.0-16.0) g/dL Hct 33.3 L (37.0-47.0) % MCV 90.5 (80-100) fL MCH 29.1 (27.0-34.0) pg MCHC 32.1 L (33.0-35.0) g/dL Plt Count 169 (150-450) 10^3/uL Neut % (Auto) 71.5 (42.2-75.2) % Lymph % (Auto) 21.3 (20.5-50.1) % [place] % (Auto) 6.5 (2-8) % Eos % (Auto) 0.6 L (1.0-3.0) % Baso % (Auto) 0.1 (0.0-1.0) % PT (9.0-12.0) SEC INR (0.9-1.2) Sodium (135-145) mmol/L Potassium (3.6-5.0) mmol/L Chloride (101-111) mmol/L Carbon Dioxide (21.0-31.0) mmol/L Anion Gap BUN (7-18) mg/dL Creatinine (0.6-1.3) mg/dL Est Cr Clr Drug Dosing mL/min Estimated GFR (MDRD) Glucose (74-105) mg/dL Lactic Acid 0.7 (0.5-2.0) mmol/L Calcium (8.4-10.2) mg/dl Total Bilirubin (0.2-1.0) mg/dL Direct Bilirubin (0.0-0.2) mg/dL Indirect Bilirubin AST (10-42) IU/L ALT (10-60) IU/L Alkaline Phosphatase (42-121) IU/L Total Protein (6.7-8.2) g/dl Albumin (3.2-5.5) g/dl Globulin Albumin/Globulin Ratio Lipase (22-51) U/L Urine Color Yellow (YELLOW) Urine Appearance Slightly cloudy (CLEAR) Urine pH 5.5 (5.0-9.0) Ur Specific [place] 1.020 (1.005-1.030) Urine Protein 30 H (NEGATIVE) Urine Glucose (UA) Negative (NEGATIVE) Urine Ketones Negative (NEGATIVE) Urine Occult Blood Moderate H (NEGATIVE) Urine Nitrite Negative (NEGATIVE) Urine Bilirubin Negative (NEGATIVE) Urine Urobilinogen 0.2 (0.2-1.0) mg/dL Ur Leukocyte Esterase Trace H (NEGATIVE) Urine RBC 5-10 H /HPF Urine WBC 10-20 H (0-5/HPF) /HPF Ur Epithelial Cells Few (NOT SEEN) /HPF Amorphous Sediment Few (NOT SEEN) /HPF Urine Bacteria Few (0-FEW/HPF) /HPF Hyaline Casts Few H (NOT SEEN) /LPF Urine Mucus Moderate H (NOT SEEN) /LPF 10/29/19 10/29/19 Range/Units 06:03 06:03 WBC (5.0-10.0) 10^3/uL RBC (4.2-5.4) 10^6/uL Hgb (12.0-16.0) g/dL Hct (37.0-47.0) % MCV (80-100) fL MCH (27.0-34.0) pg MCHC (33.0-35.0) g/dL Plt Count (150-450) 10^3/uL Neut % (Auto) (42.2-75.2) % Lymph % (Auto) (20.5-50.1) % [place] % (Auto) (2-8) % Eos % (Auto) (1.0-3.0) % Baso % (Auto) (0.0-1.0) % PT 61.5 H (9.0-12.0) SEC INR 6.7 H* (0.9-1.2) Sodium 140 (135-145) mmol/L Potassium 3.3 L (3.6-5.0) mmol/L Chloride 111 (101-111) mmol/L Carbon Dioxide 19.0 L (21.0-31.0) mmol/L Anion Gap 13.3 BUN 19 H (7-18) mg/dL Creatinine 1.2 (0.6-1.3) mg/dL Est Cr Clr Drug Dosing 23.98 mL/min Estimated GFR (MDRD) 42 Glucose 116 H (74-105) mg/dL Lactic Acid (0.5-2.0) mmol/L Calcium 8.2 L (8.4-10.2) mg/dl Total Bilirubin (0.2-1.0) mg/dL Direct Bilirubin (0.0-0.2) mg/dL Indirect Bilirubin AST (10-42) IU/L ALT (10-60) IU/L Alkaline Phosphatase (42-121) IU/L Total Protein (6.7-8.2) g/dl Albumin (3.2-5.5) g/dl Globulin Albumin/Globulin Ratio Lipase (22-51) U/L Urine Color (YELLOW) Urine Appearance (CLEAR) Urine pH (5.0-9.0) Ur Specific [place] (1.005-1.030) Urine Protein (NEGATIVE) Urine Glucose (UA) (NEGATIVE) Urine Ketones (NEGATIVE) Urine Occult Blood (NEGATIVE) Urine Nitrite (NEGATIVE) Urine Bilirubin (NEGATIVE) Urine Urobilinogen (0.2-1.0) mg/dL Ur Leukocyte Esterase (NEGATIVE) Urine RBC /HPF Urine WBC (0-5/HPF) /HPF Ur Epithelial Cells (NOT SEEN) /HPF Amorphous Sediment (NOT SEEN) /HPF Urine Bacteria (0-FEW/HPF) /HPF Hyaline Casts (NOT SEEN) /LPF Urine Mucus (NOT SEEN) /LPF Yifan Results Last 24 Hours: Microbiology 10/28/19 15:58 Urine Culture - Preliminary Urine, Clean Catch MIXED LE SUGGESTIVE OF CONTAMINATION. Med Orders - Current: Current Medications Acetaminophen (Tylenol) 650 mg PO Q4H PRN PRN Reason: Pain (Mild 1-3)/fever Albuterol/Ipratropium (Duoneb 3.0-0.5 Mg/3 Ml) 3 ml NEB Q6HRRT [facility] Last Admin: 10/29/19 07:15 Dose: 3 ml Albuterol/Ipratropium (Duoneb 3.0-0.5 Mg/3 Ml) 3 ml NEB Q2H PRN PRN Reason: sob Budesonide (Pulmicort) 0.5 mg NEB BIDRT [facility] Last Admin: 10/29/19 07:16 Dose: 0.5 mg Clopidogrel Bisulfate (Plavix) 75 mg PO DAILY [facility] Last Admin: 10/29/19 08:47 Dose: 75 mg Digoxin (Lanoxin) 125 mcg PO DAILY [facility] Last Admin: 10/29/19 08:54 Dose: 125 mcg Docusate Sodium (Colace) 100 mg PO BID PRN PRN Reason: Constipation Folic Acid (Folic Acid) 1 mg PO DAILY [facility] Last Admin: 10/29/19 08:54 Dose: 1 mg Furosemide (Lasix) 20 mg PO MoWeFr@0900 [facility] Last Admin: 10/28/19 17:16 Dose: Not Given Piperacillin Sod/Tazobactam (Sod 3.375 gm/ Sodium Chloride) 100 mls @ 200 mls/ hr IV Q6HR [facility] Last Infusion: 10/29/19 06:25 Dose: Infused Isosorbide Mononitrate (Imdur) 90 mg PO DAILY [facility] Last Admin: 10/29/19 08:53 Dose: 90 mg Levothyroxine Sodium (Levothyroxine) 112 mcg PO ACBRK [facility] Last Admin: 10/29/19 05:11 Dose: 112 mcg Lisinopril (Prinivil) 10 mg PO DAILY [facility] Last Admin: 10/29/19 08:54 Dose: 10 mg Lorazepam (Ativan) 0.5 mg PO BEDTIME PRN PRN Reason: Sleep Metoprolol Succinate (Toprol Xl) 100 mg PO DAILY [facility] Metoprolol Succinate (Toprol Xl) 50 mg PO ONETIME ONE Stop: 10/29/19 12:15 No Warfarin (Today ) 0 each PO ONETIME ONE Stop: 10/29/19 14:01 Omeprazole (Omeprazole) 20 mg PO ACBRK [facility] Last Admin: 10/29/19 05:10 Dose: 20 mg Ondansetron HCl (Zofran Odt) 4 mg PO Q4H PRN PRN Reason: nausea, able to take PO Oxycodone HCl (Oxycodone) 5 mg PO Q4H PRN PRN Reason: mod to severe pain Sertraline Hcl 100 (Mg Pt Own Med) 0 each PO DAILY [facility] Last Admin: 10/29/19 08:51 Dose: 1 each Phytonadione (Aquamephyton) 2.5 mg PO ONETIME ONE Stop: 10/29/19 12:12 Potassium Chloride (Klor-Con 10) 40 meq PO ONETIME ONE Stop: 10/29/19 12:12 Sodium Chloride (Saline Flush) 10 ml FLUSH ASDIRECTED PRN PRN Reason: Keep Vein Open Last Admin: 10/29/19 05:20 Dose: 10 ml Temazepam (Restoril) 15 mg PO BEDTIME PRN PRN Reason: Sleep Warfarin Sodium (Pharmacy To Dose - Warfarin) 1 dose .XX ASDIRECTED [facility] Discontinued Medications Heparin Sodium (Porcine) (Heparin Sodium) 5,000 units SUBCUT Q8HR [facility] Last Admin: 10/28/19 21:23 Dose: Not Given Iopamidol (Isovue-300 (61%)) 100 ml IVPUSH ONETIME ONE Stop: 10/28/19 16:58 Last Admin: 10/28/19 17:00 Dose: 75 ml Metoprolol Succinate (Toprol Xl) 50 mg PO DAILY [facility] Last Admin: 10/29/19 08:50 Dose: 50 mg No Warfarin (Today ) 0 each PO ONETIME ONE Stop: 10/28/19 15:31 Last Admin: 10/28/19 17:10 Dose: Not Given Potassium Chloride (Klor-Con 10) 40 meq PO ONETIME ONE Stop: 10/28/19 16:07 Last Admin: 10/28/19 17:11 Dose: 40 meq - Exam General: Alert, Oriented Neck: Supple Lungs: Clear to Auscultation, Normal Respiratory Effort Cardiovascular: Irregular Rhythm. No: Tachycardia GI/Abdominal Exam: Normal Bowel Sounds, Soft, Non-Tender Extremities: No Pedal Edema Sepsis Event Note - Evaluation Sepsis Screening Result: No Definite Risk - Focused Exam Vital Signs: Vital Signs Temp Pulse Pulse Resp BP BP Pulse Ox 10/29/19 11:33 37.1 C 93 20 147/91 H 99 10/29/19 08:54 124 H 150/76 H 10/29/19 08:50 124 H 150/76 H 10/29/19 07:21 35.9 C 79 18 150/76 H 100 10/29/19 07:16 81 10/29/19 04:00 36.9 C 92 20 148/64 H 98 10/29/19 01:39 84 Pulse Ox 10/29/19 11:33 10/29/19 08:54 10/29/19 08:50 10/29/19 07:21 10/29/19 07:16 98 10/29/19 04:00 10/29/19 01:39 97 Date Exam was Performed: 10/29/19 Time Exam was Performed: 12:22 - Problem List & Annotations (1) Abdominal pain SNOMED Code(s): 23134721 Code(s): R10.9 - UNSPECIFIED ABDOMINAL PAIN Status: Acute Current Visit: Yes (2) COPD (chronic obstructive pulmonary disease) SNOMED Code(s): 30584685 Code(s): J44.9 - CHRONIC OBSTRUCTIVE PULMONARY DISEASE, UNSPECIFIED Status : Acute Current Visit: Yes (3) History of atrial fibrillation SNOMED Code(s): 475841868 Code(s): Z86.79 - PERSONAL HISTORY OF OTHER DISEASES OF THE CIRCULATORY SYSTEM Status: Acute Current Visit: No - Problem List Review Problem List Initiated/Reviewed/Updated: Yes - My Orders Last 24 Hours: My Active Orders 10/28/19 14:15 Blood Culture x2 Reflex Set [OM.PC] Stat 10/28/19 14:27 CULTURE BLOOD [BC] Stat LORazepam [Ativan] 0.5 mg PO BEDTIME PRN 10/28/19 14:30 RT Aerosol Therapy [RC] ASDIRECTED Albuterol/Ipratropium [DuoNeb 3.0-0.5 MG/3 ML] 3 ml NEB Q2H PRN Pharmacy to Dose - Warfarin 1 dose .XX ASDIRECTED 10/28/19 14:34 CULTURE BLOOD [BC] Stat 10/28/19 15:09 Patient Status [ADT] Routine Oxygen Therapy [RC] .PRN VTE/DVT Education [RC] PER UNIT ROUTINE Vital Signs [RC] 00,04,08,12,16,20 Acetaminophen [Tylenol] 650 mg PO Q4H PRN Docusate Sodium [Colace] 100 mg PO BID PRN Ondansetron [Zofran ODT] 4 mg PO Q4H PRN Sodium Chloride 0.9% [Saline Flush] 10 ml FLUSH ASDIRECTED PRN Temazepam [Restoril] 15 mg PO BEDTIME PRN oxyCODONE 5 mg PO Q4H PRN Peripheral IV Insertion Adult [OM.PC] Routine Resuscitation Status Routine 10/28/19 15:10 Antiembolic Hose [OM.PC] Per Unit Routine 10/28/19 15:11 Antiembolic Devices [RC] , Peripheral IV Care [RC] ,10/28/19 15:58 CULTURE URINE [RM] Routine 10/28/19 16:00 Furosemide [Lasix] 20 mg PO MoWeFr@0900 Piperacillin/Tazobactam [Zosyn] 3.375 gm Sodium Chloride 0.9% [Normal Saline] 100 ml IV Q6HR 10/28/19 18:00 Albuterol/Ipratropium [DuoNeb 3.0-0.5 MG/3 ML] 3 ml NEB Q6HRRT Budesonide [Pulmicort] 0.5 mg NEB BIDRT 10/29/19 06:00 Levothyroxine 112 mcg PO ACBRK Omeprazole 20 mg PO ACBRK 10/29/19 09:00 Clopidogrel [Plavix] 75 mg PO DAILY Digoxin [Lanoxin] 125 mcg PO DAILY Folic Acid 1 mg PO DAILY Isosorbide Mononitrate [Imdur] 90 mg PO DAILY Patient's Own Medication [Ptom] 0 each PO DAILY lisinopriL [Prinivil] 10 mg PO DAILY 10/29/19 12:11 Phytonadione [AquaMephyton] 2.5 mg PO ONETIME ONE Potassium Chloride [Klor-Con 10] 40 meq PO ONETIME ONE 10/29/19 12:14 Metoprolol Succinate [Toprol XL] 50 mg PO ONETIME ONE 10/29/19 14:00 Non-Formulary Medication [NF Drug] 0 each PO ONETIME ONE 10/29/19 Lunch Regular Diet [DIET] 10/30/19 05:15 BASIC METABOLIC PANEL,BMP [CHEM] AM CBC WITH AUTO DIFF [HEME] AM 10/30/19 09:00 Metoprolol Succinate [Toprol XL] 100 mg PO DAILY 10/30/19 09:03 INR,PT,PROTHROMBIN TIME [COAG] DAILY 10/31/19 09:03 INR,PT,PROTHROMBIN TIME [COAG] DAILY 11/01/19 09:03 INR,PT,PROTHROMBIN TIME [COAG] DAILY 11/02/19 09:03 INR,PT,PROTHROMBIN TIME [COAG] DAILY 11/03/19 09:03 INR,PT,PROTHROMBIN TIME [COAG] DAILY 11/04/19 09:03 INR,PT,PROTHROMBIN TIME [COAG] DAILY - Plan Plan:: 89-year-old presented with abdominal pain. History diverticulitis. The patient was found to have a temperature of 100.4 in the clinic. Abdominal pain obtained ct "cholelithiasis, no diverticulitis, chronic left high grade upj obstruction' WBC is back to normal Ucx: contaminant unclear etiology of pain, fever improving markers and symptoms though cont empirical zosyn severe hypokalemia continue to replace History of COPD No apparent acute exacerbation Treat with Pulmicort, DuoNeb as needed Atrial fibrillation, chronic, episode of elevated ventricular rate increase metoprolol for rate control anticoagulation for afib inr is supratherapeutic hold Coumadin add small dose Vit K recheck inr is am
[2019-10-30] MEDS: Sodium Chloride 0.9% 10 ML Syringe FLUSH PRN ×4 (00:45→12:12)
[2019-10-30] MEDS: Piperacillin/Tazobactam 3.375 GM in Sodium Chloride 0.9% 100 ML IV SCH ×3 (00:48→12:12)
[2019-10-30] MEDS: Albuterol/Ipratropium 3.0-0.5 MG/3 ML Neb Soln NEB SCH ×3 (00:59→13:12)
[2019-10-30] MEDS: Omeprazole 20 MG Cap.CR **PT OWN MED PO SCH (05:14)
[2019-10-30] MEDS: LEVOTHYROXINE 112 MCG PO SCH (05:15)
[2019-10-30 06:59] LABS: ANION GAP 12.8
[2019-10-30] MEDS: Budesonide 0.5 MG/2 ML Neb Susp NEB SCH (07:27)
[2019-10-30] MEDS ORDERED: Metoprolol Succinate 50 MG Tab.ER **PT OWN MED PO SCH (09:00)
[2019-10-30] MEDS: FUROSEMIDE 20 MG PO SCH (09:02)
[2019-10-30] MEDS: FOLIC ACID 1 MG PO SCH (09:03)
[2019-10-30] MEDS: ISOSORBIDE MONONITRATE 60 MG PO SCH (09:03)
[2019-10-30] MEDS: Clopidogrel 75 MG Tab **PT OWN MED PO SCH (09:03)
[2019-10-30] MEDS: DIGOXIN 125 MCG PO SCH (09:03)
[2019-10-30] MEDS: LISINOPRIL 20 MG PO SCH (09:05)
[2019-10-30] MEDS: SERTRALINE HCL 100 MG PO SCH (09:05)
--- NOTE | 2019-10-30 11:14 | PCM.DCSUM1 ---
Discharge Summary - Hospital Course Free Text/Narrative:: 89-year-old presented with abdominal pain. History diverticulitis. The patient was found to have a temperature of 100.4 in the clinic. Abdominal pain obtained ct "cholelithiasis, no diverticulitis, chronic left high grade upj obstruction' WBC is back to normal Ucx: contaminant unclear etiology of pain, fever improving markers and symptoms treated with zosyn finish 5 days augmentin severe hypokalemia was replaced History of COPD No apparent acute exacerbation Atrial fibrillation, chronic, episodes of elevated ventricular rate increased metoprolol for rate control htn uncontrolled add norvasc cont lisinopril (follow renal fx) increased metoprolol anticoagulation for afib inr was supratherapeutic held Coumadin added small dose Vit K inr came down will resume coumadin at lower dose Diagnosis: Stroke: No - Discharge Data Discharge Date: 10/30/19 Discharge Disposition: Home, Self-Care 01 Condition: Good - Referral to Home Health Primary Care Physician: Destiny Alexander NP - Discharge Diagnosis/Problem(s) (1) Abdominal pain SNOMED Code(s): 62333891 ICD Code: R10.9 - UNSPECIFIED ABDOMINAL PAIN Status: Acute Current Visit : Yes (2) COPD (chronic obstructive pulmonary disease) SNOMED Code(s): 72137046 ICD Code: J44.9 - CHRONIC OBSTRUCTIVE PULMONARY DISEASE, UNSPECIFIED Status : Acute Current Visit: Yes (3) History of atrial fibrillation SNOMED Code(s): 720271434 ICD Code: Z86.79 - PERSONAL HISTORY OF OTHER DISEASES OF THE CIRCULATORY SYSTEM Status: Acute Current Visit: No - Patient Instructions Diet: Heart Healthy Diet Activity: As Tolerated - Discharge Plan *PRESCRIPTION DRUG MONITORING PROGRAM REVIEWED*: Not Applicable *COPY OF PRESCRIPTION DRUG MONITORING REPORT IN PATIENT AMNA: Not Applicable Prescriptions/Med Rec: amLODIPine [Norvasc] 5 mg PO DAILY #30 tablet Amoxicillin/Potassium Clav [Augmentin 500-125 Tablet] 1 each PO TID 5 Days #15 tablet Metoprolol Succinate [Toprol XL 50mg] 100 mg PO DAILY #30 tab.er Warfarin [Coumadin] 2.5 mg PO DAILY #30 tab Home Medications: Home Meds Albuterol [IJD: Ventolin HFA] 2 puff INH QID PRN 07/02/16 [History] Clopidogrel Bisulfate [Clopidogrel] 75 mg PO DAILY 07/02/16 [History] Digoxin [Digox] 125 mcg PO DAILY 07/02/16 [History] Fluticasone/Salmeterol [Advair 250-50 Diskus] 1 puff INH BID 07/02/16 [History] Isosorbide Mononitrate [Imdur] 90 mg PO DAILY 07/02/16 [History] Levothyroxine 112 mcg PO DAILY 07/02/16 [History] Omeprazole 20 mg PO DAILY 07/02/16 [History] Sertraline HCl 100 mg PO DAILY 07/02/16 [History] atorvaSTATin Calcium [Atorvastatin Calcium] 80 mg PO DAILY 07/02/16 [History] Nitroglycerin [Nitrostat] 0.4 mg SL ASDIRECTED PRN 01/22/18 [History] Folic Acid 1 mg PO DAILY 08/18/18 [History] LORazepam 0.5 mg PO BEDTIME PRN 05/04/19 [History] Methylcellulose [Citrucel] 500 mg PO DAILY PRN 05/04/19 [History] Furosemide 20 mg PO .MOWEDFRI 10/28/19 [History] lisinopriL [Lisinopril] 10 mg PO DAILY 10/28/19 [History] Amoxicillin/Potassium Clav [Augmentin 500-125 Tablet] 1 each PO TID 5 Days #15 tablet 10/30/19 [Rx] Metoprolol Succinate [Toprol XL 50mg] 100 mg PO DAILY #30 tab.er 10/30/19 [Rx] Warfarin [Coumadin] 2.5 mg PO DAILY #30 tab 10/30/19 [Rx] amLODIPine [Norvasc] 5 mg PO DAILY #30 tablet 10/30/19 [Rx] Patient Handouts: Abdominal Pain, Adult, [id number] - Discharge Summary/Plan Comment DC Time >30 min.: No - Patient Data Vitals - Most Recent: Last Vital Signs Temp 37.3 C 10/30/19 08:00 Pulse 108 H 10/30/19 09:06 Resp 18 10/30/19 08:00 BP 171/95 H 10/30/19 09:06 Pulse Ox 98 10/30/19 08:00 Weight - Most Recent: 67.132 kg I&O - Last 24 hours: Intake & Output 10/29/19 10/30/19 10/30/19 22:59 06:59 14:59 Intake Total 180 382 240 Output Total 200 Balance 180 182 240 Lab Results - Last 24 hrs: Laboratory Results - last 24 hr 10/30/19 10/30/19 10/30/19 Range/Units 06:10 06:10 06:10 WBC 7.5 (5.0-10.0) 10^3/uL RBC 3.63 L (4.2-5.4) 10^6/uL Hgb 10.6 L (12.0-16.0) g/dL Hct 33.0 L (37.0-47.0) % MCV 90.9 (80-100) fL MCH 29.2 (27.0-34.0) pg MCHC 32.1 L (33.0-35.0) g/dL Plt Count 193 (150-450) 10^3/uL Neut % (Auto) 73.0 (42.2-75.2) % Lymph % (Auto) 20.5 (20.5-50.1) % [place] % (Auto) 4.9 (2-8) % Eos % (Auto) 1.5 (1.0-3.0) % Baso % (Auto) 0.1 (0.0-1.0) % PT 20.5 H D (9.0-12.0) SEC INR 2.1 H (0.9-1.2) Sodium 142 (135-145) mmol/L Potassium 3.8 (3.6-5.0) mmol/L Chloride 113 H (101-111) mmol/L Carbon Dioxide 20.0 L (21.0-31.0) mmol/L Anion Gap 12.8 BUN 20 H (7-18) mg/dL Creatinine 1.5 H (0.6-1.3) mg/dL Est Cr Clr Drug Dosing 19.19 mL/min Estimated GFR (MDRD) 33 Glucose 100 (74-105) mg/dL Calcium 8.0 L (8.4-10.2) mg/dl ESTELA Results - Last 24 hrs: Microbiology 10/28/19 15:58 Urine Culture - Final Urine, Clean Catch 10/28/19 14:34 Aerobic Blood Culture - Preliminary Blood - Venous - Lab Draw NO GROWTH AFTER 1 DAY Anaerobic Blood Culture - Preliminary NO GROWTH AFTER 1 DAY 10/28/19 14:27 Aerobic Blood Culture - Preliminary Blood - Venous NO GROWTH AFTER 1 DAY Anaerobic Blood Culture - Preliminary NO GROWTH AFTER 1 DAY Med Orders - Current: Current Medications Acetaminophen (Tylenol) 650 mg PO Q4H PRN PRN Reason: Pain (Mild 1-3)/fever Albuterol/Ipratropium (Duoneb 3.0-0.5 Mg/3 Ml) 3 ml NEB Q6HRRT [facility] Last Admin: 10/30/19 07:27 Dose: 3 ml Albuterol/Ipratropium (Duoneb 3.0-0.5 Mg/3 Ml) 3 ml NEB Q2H PRN PRN Reason: sob Amlodipine Besylate (Norvasc) 5 mg PO DAILY [facility] Budesonide (Pulmicort) 0.5 mg NEB BIDRT [facility] Last Admin: 10/30/19 07:27 Dose: 0.5 mg Clopidogrel Bisulfate (Plavix) 75 mg PO DAILY [facility] Last Admin: 10/30/19 09:03 Dose: 75 mg Digoxin (Lanoxin) 125 mcg PO DAILY [facility] Last Admin: 10/30/19 09:03 Dose: 125 mcg Docusate Sodium (Colace) 100 mg PO BID PRN PRN Reason: Constipation Folic Acid (Folic Acid) 1 mg PO DAILY [facility] Last Admin: 10/30/19 09:03 Dose: 1 mg Furosemide (Lasix) 20 mg PO MoWeFr@0900 [facility] Last Admin: 10/30/19 09:02 Dose: 20 mg Piperacillin Sod/Tazobactam (Sod 3.375 gm/ Sodium Chloride) 100 mls @ 200 mls/ hr IV Q6HR [facility] Last Admin: 10/30/19 05:11 Dose: 100 mls/hr Isosorbide Mononitrate (Imdur) 90 mg PO DAILY [facility] Last Admin: 10/30/19 09:03 Dose: 90 mg Levothyroxine Sodium (Levothyroxine) 112 mcg PO ACBRK [facility] Last Admin: 10/30/19 05:15 Dose: 112 mcg Lorazepam (Ativan) 0.5 mg PO BEDTIME PRN PRN Reason: Sleep Metoprolol Succinate (Toprol Xl) 100 mg PO DAILY [facility] Last Admin: 10/30/19 09:06 Dose: 100 mg Omeprazole (Omeprazole) 20 mg PO ACBRK [facility] Last Admin: 10/30/19 05:14 Dose: 20 mg Ondansetron HCl (Zofran Odt) 4 mg PO Q4H PRN PRN Reason: nausea, able to take PO Oxycodone HCl (Oxycodone) 5 mg PO Q4H PRN PRN Reason: mod to severe pain Sertraline Hcl 100 (Mg Pt Own Med) 0 each PO DAILY [facility] Last Admin: 10/30/19 09:05 Dose: 1 each Sodium Chloride (Saline Flush) 10 ml FLUSH ASDIRECTED PRN PRN Reason: Keep Vein Open Last Admin: 10/30/19 05:43 Dose: 10 ml Temazepam (Restoril) 15 mg PO BEDTIME PRN PRN Reason: Sleep Warfarin Sodium (Pharmacy To Dose - Warfarin) 1 dose .XX ASDIRECTED [facility] Warfarin Sodium (Coumadin) 2.5 mg PO ONETIME ONE Stop: 10/30/19 14:01 Discontinued Medications Heparin Sodium (Porcine) (Heparin Sodium) 5,000 units SUBCUT Q8HR [facility] Last Admin: 10/28/19 21:23 Dose: Not Given Iopamidol (Isovue-300 (61%)) 100 ml IVPUSH ONETIME ONE Stop: 10/28/19 16:58 Last Admin: 10/28/19 17:00 Dose: 75 ml Lisinopril (Prinivil) 10 mg PO DAILY [facility] Last Admin: 10/30/19 09:05 Dose: 10 mg Metoprolol Succinate (Toprol Xl) 50 mg PO DAILY [facility] Last Admin: 10/29/19 08:50 Dose: 50 mg Metoprolol Succinate (Toprol Xl) 50 mg PO ONETIME ONE Stop: 10/29/19 12:15 Last Admin: 10/29/19 16:11 Dose: 50 mg No Warfarin (Today ) 0 each PO ONETIME ONE Stop: 10/28/19 15:31 Last Admin: 10/28/19 17:10 Dose: Not Given No Warfarin (Today ) 0 each PO ONETIME ONE Stop: 10/29/19 14:01 Last Admin: 10/29/19 14:19 Dose: Not Given Phytonadione (Aquamephyton) 2.5 mg PO ONETIME ONE Stop: 10/29/19 12:12 Last Admin: 10/29/19 12:39 Dose: 2.5 mg Potassium Chloride (Klor-Con 10) 40 meq PO ONETIME ONE Stop: 10/28/19 16:07 Last Admin: 10/28/19 17:11 Dose: 40 meq Potassium Chloride (Klor-Con 10) 40 meq PO ONETIME ONE Stop: 10/29/19 12:12 Last Admin: 10/29/19 12:39 Dose: 40 meq
[2019-10-30] MEDS ORDERED: amLODIPine 5 MG Tab PO SCH (11:15)
[2019-10-30 11:40] VITALS: BP 137/70; PULSE 88
[2019-10-30] MEDS: Warfarin 2.5 MG Tab PO ONE ×2 (12:11→13:14)
== END 2019-10-30 13:15 | disposition home or self-care (01) ==
LOC: UNDOADMOB 12:22 → DL.MS 12:22
PROVIDERS: ADMIT Internal Medicine; ATTEND Internal Medicine
DX: R10.32 Left lower quadrant pain (principal); K21.9 Gastro-esophageal reflux disease without esophagitis; I10 Essential (primary) hypertension; I48.91 Unspecified atrial fibrillation; E78.00 Pure hypercholesterolemia, unspecified; J44.9 Chronic obstructive pulmonary disease, unspecified; E11.9 Type 2 diabetes mellitus without complications; E03.9 Hypothyroidism, unspecified; E87.6 Hypokalemia; F41.9 Anxiety disorder, unspecified; F32.9 Major depressive disorder, single episode, unspecified; Z87.19 Personal history of other diseases of the digestive system; Z88.5 Allergy status to narcotic agent; Z79.02 Long term (current) use of antithrombotics/antiplatelets; Z79.899 Other long term (current) drug therapy; Z90.49 Acquired absence of other specified parts of digestive tract
CPT/HCPCS: 36415; 74177; 80048; 80076; 81001; 83605; 83690; 85025; 85610; 87040; 87086; 94640; 96365; 96366; 96376; A9270; G0378; G0379; J2543; J7050; Q9967; 99217; 99218; 99225; J7620-GY